=== PATIENT | male | born 1970 | race Caucasian/White ===

== ENCOUNTER 2018-09-14 18:37 | Inpatient (IN) | payer OTHER ==
--- NOTE | 2018-09-14 20:09 | ED ---
HPI Diabetic - HPI Summary HPI Summary: This pt is a 48 y/o male, with hx of type 2 DM (diagnosed about 15 years ago), presenting to [facility] c/o nausea, vomiting, diffuse pain "everywhere." Per , pt started a new keto diet approximately 1 week ago. Pt reports he started feeling ill 3 days ago. Pt notes he began vomiting last night. Pt went to Urgent Care in [place] today where he had blood work and was told he was in DKA. Blood glucose at Urgent Care was 230. He currently presents with SOB, nausea, vomiting, diffuse pain, myalgia, chest pain, abd pain, polydipsia, polyuria. Denies fever. Pt reports he has been compliant with insulin and metformin. However, today he has not been able to keep these medications down. - History Of Current Complaint Chief Complaint: EDDiabeticProb Time Seen by Provider: 09/14/18 20:02 Hx Obtained From: Patient Onset/Duration: Lasting Days, Still Present, Worse Since - last night Timing: Days Severity Currently: Moderate Character: Alert Aggravating: Diet Change - keto diet for about 1 week Alleviating: Nothing Associated Signs & Symptoms: Abdominal Pain, Nausea, Polydipsia, Polyuria, Shortness of Breath, Vomiting Related History: Compliant, DM II, Insulin Requiring - Allergies/Home Medications Allergies/Adverse Reactions: Allergies Allergy/AdvReac Type Severity Reaction Status Date / Time Penicillins Allergy Unknown Verified 09/14/18 20:24 Reaction Details Home Medications: Home Medications Humalog Kwikpen U-100 100 units SUBCUT BEDTIME 09/14/18 [History Confirmed 09/14] metFORMIN* [Glucophage 1000 MG TAB *] 1,000 mg PO BID 09/14/18 [History Confirmed 09/14/18] PMH/Surg Hx/FS Hx/Imm Hx Endocrine/Hematology History: Reports: Hx Diabetes Cardiovascular History: Denies: Hx Hypertension Infectious Disease History: No Infectious Disease History: Denies: Traveled Outside the [place] in Last 30 Days - Family History Known Family History: Positive: Non-Contributory - Social History Alcohol Use: Occasionally Substance Use Type: Reports: None Smoking Status (MU): Never Smoked Tobacco Review of Systems Constitutional: Other - POS: polydipsia, polyuria Positive: Fatigue. Negative: Fever Positive: Chest Pain Positive: Shortness Of Breath Positive: Abdominal Pain, Vomiting, Nausea Positive: Myalgia All Other Systems Reviewed And Are Negative: Yes Physical Exam - Summary Physical Exam Summary: Appearance: Well-nourished Skin: Warm, dry, no obvious rash Eyes: sclera anicteric, no conjunctival pallor ENT: mucous membranes moist, pharynx appears normal Neck: Supple, nontender Respiratory: Clear to auscultation, no signs of respiratory distress Cardiovascular: Normal S1, S2. No murmurs. Normal distal pulses in tibial and radial bilaterally. Abdomen: Soft, nontender, normal active bowel sounds present Musculoskeletal: Normal, Strength/ROM Intact Neurological: A&Ox3, awake and alert, mentation is normal, speech is fluent and appropriate Psychiatric: affect is normal, does not appear anxious or depressed Triage Information Reviewed: Yes Vital Signs On Initial Exam: Initial Vitals Temp Pulse Resp BP Pulse Ox 97.1 F 118 20 136/69 98 09/14/18 18:44 09/14/18 18:44 09/14/18 18:44 09/14/18 18:44 09/14/18 18:44 Vital Signs Reviewed: Yes Diagnostics - Vital Signs Vital Signs Temp Pulse Resp BP Pulse Ox 09/14/18 18:44 97.1 F 118 20 136/69 98 - Laboratory Lab Results: Lab Results 09/14/18 Range/Units 18:51 POC Glucose (mg/dL) 390 H (70-100) mg/dL Result Diagrams: 09/15/18 06:18 09/15/18 09:00 Lab Statement: Any lab studies that have been ordered have been reviewed, and results considered in the medical decision making process. - Radiology Chest XR Summary of Radiographic Findings: pending official radiology report. - EKG 20:31 Cardiac Rate: Tachycardia - at 111 bpm EKG Rhythm: Sinus Tachycardia Summary of EKG Findings: ST elev, probable normal early repol pattern. Prolonged QT interval. Diabetic Course/Dx - Course Assessment/Plan: Pt is a 48 y/o male, with hx of type 2 DM (diagnosed about 15 years ago), who presents with nausea, vomiting, diffuse pain "everywhere." Per , pt started a new keto diet approximately 1 week ago. Pt reports he started feeling ill 3 days ago. Pt notes he began vomiting last night. Pt went to Urgent Care in [place] today where he had blood work and was told he was in DKA. Lab tests remarkable for WBC of 18.2, VBG <7, VBG pCO2 of 18, VBG pO2 of 64, VBG O2 sat of 90.2, sodium of 127, potassium of 5.5, carbon dioxide <7, glucose of 508, CRP of 18.39. In the ED course the pt was given IV fluids, Insulin. Discussed the case with Dr. Powell, hospitalist, who accepted the pt for admission. - Diagnoses Provider Diagnoses: Diabetic ketoacidosis - Physician Notifications Discussed Care Of Patient With: Joanna Powell - hospitalist Time Discussed With Above Provider: 21:10 Instructed by Provider To: Admit As Inpatient - Critical Care Time Critical Care Time: 30-74 min Discharge - Sign-Out/Discharge Documenting (check all that apply): Patient Departure - Admit to [facility] Patient Received Moderate/Deep Sedation with Procedure: No - Discharge Plan Condition: Stable Disposition: ADMITTED TO [facility] - Billing Disposition and Condition Condition: STABLE Disposition: Admitted to [facility] - Attestation Statements Document Initiated by Jenelle: Yes Documenting Nanciibe: Nara Green Provider For Whom Jenelle is Documenting (Include Credential): Jose Rafael Melchor MD Scribe Attestation: Nara Jimenez, scribed for Jose Rafael Melchor MD on 09/15/18 at 1428. Scribe Documentation Reviewed: Yes Provider Attestation: The documentation as recorded by the Nara carrington accurately reflects the service I personally performed and the decisions made by me, Jose Rafael Melchor MD Status of Scribe Document: Viewed
[2018-09-14 20:37] LABS: Hematocrit 47 % (36-46); Hemoglobin 15.6 g/dL (14.0-18.0); Mean Corpuscular HGB Conc 33 g/dL (31-36); Mean Corpuscular Hemoglobin 30 pg (27-31); Mean Corpuscular Volume 91 fL (80-94); Mean Platelet Volume 7.5 fL (7.4-10.4); Platelet Count 338 10^3/uL (150-450); Red Blood Count 5.18 10^6 /uL (4.18-5.48); Red Cell Distribution Width 14 % (10.5-15); White Blood Count 18.1 10^3/uL (3.5-10.8)
[2018-09-14] MEDS: NS 0.9% 1000 ML** 3,000 ML IV ONE ×2 (20:38→22:45)
[2018-09-14 20:54] LABS: ALT 27 U/L (7-52); AST 23 U/L (13-39); Albumin/Globulin Ratio 1.6 (1-3); Alkaline Phosphatase 82 U/L (34-104); BUN/Creatinine Ratio 12.2 (8-20); Blood Urea Nitrogen 23 mg/dL (6-24); C Reactive Protein 18.39 mg/L (<8.01); Calcium 9.4 mg/dL (8.6-10.3); Chloride 93 mmol/L (101-111); EGFR African American 46.3 (>60); EGFR Non-African American 38.3 (>60); Globulin 3.1 g/dL (2-4); Sodium 127 mmol/L (135-145); Total Protein 8.1 g/dL (6.4-8.9)
[2018-09-14 21:00] LABS: CO2 Carbon Dioxide < 7 mmol/L (22-32); Glucose 508 mg/dL (70-100); Potassium 5.5 mmol/L (3.5-5.0)
[2018-09-14 21:03] LABS: Immature Granulocytes 6 % (0-9); Lymphocytes % 10 %; Metamyelocytes % 1 % (0-2); Monocytes % 11 %; Myelocytes % 1 % (0-1); Neutrophil % 73 %
[2018-09-14 21:04] LABS: ABS Basophils 0.1 10^3/ul (0-0.2); ABS Eosinophils 0 10^3/ul (0-0.6); ABS Lymphocytes 1.7 10^3/ul (1.0-4.8); ABS Monocytes 2.1 10^3/ul (0-0.8); ABS Neutrophils 14.3 10^3/ul (1.5-7.7); ABS Nucleated RBC 0 10^3/ul; Nucleated Red Blood Cells % 0.1
[2018-09-14] MEDS ORDERED: Insulin REGULAR(*) 1 UNITS UNIT IV PUSH ONE (21:06)
[2018-09-14] MEDS ORDERED: Morphine 4 MG/ML VIAL (1 ml) 4 MG/ML VIAL IV ONE (21:35)
[2018-09-14 21:49] LABS: Cholesterol 304 mg/dL; HDL Cholesterol 50.9 mg/dL; LDL Cholesterol 199 mg/dL; Triglycerides 271 mg/dL
[2018-09-14] MEDS ORDERED: Morphine 4 MG/ML VIAL (1 ml) 4 MG/ML VIAL IV PRN (21:56)
[2018-09-14] MEDS ORDERED: NS 0.9% 1000 ML** 3,000 ML IV ONE (21:56)
[2018-09-14] MEDS ORDERED: Insulin IVPB 100 units/100 ml 100 UNITS/100 ML UNIT IVPB SCH ×2 (22:00)
[2018-09-14] MEDS ORDERED: Ondansetron INJ* 2 MG/ML VIAL IV PRN (22:14)
[2018-09-14 22:55] LABS: BUN/Creatinine Ratio 13.2 (8-20); Blood Urea Nitrogen 23 mg/dL (6-24); Calcium 8.9 mg/dL (8.6-10.3); Chloride 98 mmol/L (101-111); EGFR African American 50.9 (>60); EGFR Non-African American 42.1 (>60); Glucose 440 mg/dL (70-100); Sodium 129 mmol/L (135-145)
[2018-09-14 22:56] LABS: CO2 Carbon Dioxide < 7 mmol/L (22-32); Potassium 5.3 mmol/L (3.5-5.0)
[2018-09-14] MEDS: KCL 20 MEQ/100 ML IVPREMIX* 20 MEQ/100 ML BAG IV SCH (23:25)
[2018-09-14] MEDS: Enoxaparin(*) 30 MG/0.3 ML SYR SUBCUT SCH (23:26)
[2018-09-15 00:59] LABS: Urine Appearance Clear; Urine Bacteria Absent (Absent); Urine Bilirubin Negative (Negative); Urine Blood 3+ (Negative); Urine Color Yellow; Urine Glucose 3+(>=500 mg/dL) (Negative); Urine Ketones 2+ (Negative); Urine Nitrite Negative (Negative); Urine Protein 1+(30 mg/dL) (Negative); Urine Red Blood Cell Absent (Absent); Urine Specific Gravity 1.015 (1.010-1.030); Urine Squamous Epithelial Cell Present (Absent); Urine Urobilinogen Negative (Negative); Urine White Blood Cell Absent (Absent)
[2018-09-15] MEDS: KCL 20 MEQ/100 ML IVPREMIX* 20 MEQ/100 ML BAG IV SCH ×2 (01:27→04:00)
[2018-09-15 01:54] LABS: BUN/Creatinine Ratio 13.1 (8-20); Blood Urea Nitrogen 22 mg/dL (6-24); CO2 Carbon Dioxide < 7 mmol/L (22-32); Calcium 8.6 mg/dL (8.6-10.3); Chloride 105 mmol/L (101-111); EGFR Non-African American 43.8 (>60); Glucose 272 mg/dL (70-100); Potassium 4.9 mmol/L (3.5-5.0); Sodium 131 mmol/L (135-145)
--- NOTE | 2018-09-15 01:59 | HP ---
HISTORY AND PHYSICAL: DATE OF ADMISSION: 01/14/19 PRIMARY CARE PROVIDER: Dr. Hollins, floor cleaner. JUKE BOX SERVICER: Haylee Bliss, patient's . CODE STATUS: Full. CHIEF COMPLAINT: Nausea, vomiting, and back pain. SOURCE OF INFORMATION: HPI is obtained from patient and his . Patient is a good historian, although limited given his condition at presentation. HISTORY OF PRESENT ILLNESS: This is a 48-year-old male with a past medical history of insulin-dependent diabetes, reports was told it was type 2 and diagnosed 15 years ago, on short-acting insulin and metformin and managed by an floor cleaner in [place]. He presented tonight with nausea, vomiting, and low back pain from urgent care, where they told him to seek emergency room care. He and his said that they started a new ketogenic diet about 1 week ago, and then starting about 3 days ago, patient began to feel ill with malaise and low back pain. The back pain which is dull and achy and in bilateral lumbar region became so severe he felt nausea, but then began vomiting last night, and has diffuse muscle pain dull and achy in most muscle beds since then. He was unable to take pain medications because he was so nauseous and was unable to hold them down. He did go to urgent care today to get these things checked out and they told them that he was in DKA and to present to an emergency room. On review of systems, patient endorses no fevers, chills. Does endorse malaise. Head and Eyes: Denies vision change, headaches. ENT: Denies sore throat or difficulty swallowing. Cardiovascular: Denies guillermo chest pain, palpitations, or orthopnea. Respiratory: Denies shortness of breath or cough. GI: Does endorse nausea and vomiting. Mild constipation, has only been able to have 1 bowel movement in the last 3 days. No abdominal pain. : Denies dysuria or hematuria. Musculoskeletal: Myalgias in low back that radiate to mid back, but no guillermo arthralgias or weakness. Skin: Denies new rashes or infections. Neurologic: Denies focal weakness or numbness. Psychiatric: Denies depression or anxiety. Endocrine: Does endorse polyuria and polydipsia. Heme and Lymph: Denies easy bruising or bleeding. EMERGENCY ROOM COURSE: In the ER, temperature is 97.1, pulse is 118, respiratory rate is 20, blood pressure is 136/69. Labs are done that show a CBC with WBC of 18, CMP with glucose of 500, sodium of 127; though corrects to 133 with a gap greater than 30. His CO2 was unable to be measured. His creatinine was 1.89. EKG shows sinus tachycardia. Chest x-ray was ordered, which shows no acute cardiopulmonary process. A UA was pending at the time of my assessment. He was given 10 units of insulin and started on 3 L normal saline bolus and the emergency room asked the hospitalist team to evaluate the patient for new-onset DKA. PAST MEDICAL HISTORY: Only significant for insulin-dependent diabetes diagnosed 15 years ago and obesity. PAST SURGICAL HISTORY: None. MEDICATIONS: He is on metformin 1000 mg b.i.d. and Humalog with meals, sliding scale. ALLERGIES: He has no known drug allergies. FAMILY HISTORY: Mother is from brain cancer. Father is with diabetes and obesity. SOCIAL HISTORY: Tobacco: He is a lifetime nonsmoker Alcohol: Social, 2 to 3 drinks per month. Illicits: Never, no IVDU. Patient lives with his in [place]. 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 REVIEW OF SYSTEMS: As per HPI. A 10-point review of systems was done. PHYSICAL EXAMINATION GENERAL APPEARANCE: Patient is uncomfortable lying on the emergency room stretcher, rigoring at times, though conversant. Appears unwell. VITAL SIGNS: At the time of monitoring, his heart rate is 100, blood pressure is 131/87, oxygen saturation is 99% on room air, temperature is 98.1. HEENT: He has dry mucous membranes. His extraocular muscles are intact. Pupils are equal and reactive. NECK: Supple with no supraclavicular lymphadenopathy. RESPIRATORY: Clear to auscultation bilaterally. CARDIAC: He is in sinus tachycardia with no murmurs, rubs, or gallops. Belly is distended, but soft, nontender. Normoactive bowel sounds. No rebound, no guarding. MUSCULOSKELETAL: Patient moves all 4 extremities spontaneously, although is limited by pain in flexion and extension of low back. He has no tenderness to palpation of spine, aside from paraspinal muscles in the lumbar spine. Straight leg raise negative EXTREMITIES: He has no edema in bilateral lower extremities and 2+ palpable pulses in bilateral feet. NEUROLOGIC: Cranial nerves II through XII are intact. Lower extremities, 5/5 strength bilaterally in flexion and extension of all muscle groups, although limited by pain of low back. Upper extremities, 5/5 strength in all muscle groups. Sensation is intact bilaterally. He is A and O x4. DIAGNOSTIC STUDIES/LAB DATA: White blood cell count of 18, hemoglobin of 15, hematocrit of 47, platelets of 338. Patient does have a left shift. Chemistry shows sodium of 127, potassium of 5.5, chloride of 93, carbon dioxide less than 7, BUN 23, creatinine of 1.8, glucose of 508. A1c was done which shows A1c of 7.6. Alk phos 82, AST 23, ALT 27, CRP 18. Lipid panel was done which shows cholesterol of 304 with LDL of 199. Blood gas was done which shows VBG, pH of less than 7, although this was venous. Imaging was done including a chest x-ray that shows no active cardiopulmonary process and EKG that shows sinus tachycardia with no acute ischemia. Imaging, labs, and EKG were reviewed by myself. ASSESSMENT AND PLAN: This is a 48-year-old male with insulin-dependent diabetes , seemingly well controlled on insulin and metformin, who presents in diabetic ketoacidosis and meeting systemic inflammatory response syndrome criteria with acute kidney injury. 1. Diabetic ketoacidosis. We will admit to intensive care unit. Venous blood gas shows pH of less than 7. --We will start insulin drip at 0.1 units per kg per hour and 0.9% sodium chloride at 250 cc per hour with the addition of 30 mEq of potassium. We will check q.3-hour BMP for potassium, glucose, and sodium monitoring. --When serum glucose reaches 200, we will clamp the patient with the following management: 5% dextrose and 0.45% sodium chloride for fluids at 200 cc per hour and we will lower insulin drip to 0.05 units per kg per hour with additional 20 mEq of potassium and check BMP q.4 hours until gap is closed. --We will start subcutaneous insulin prior to patient eating. A1c and lipid panel are in place. 2. Systemic inflammatory response syndrome criteria. Patient has elevated leukocytosis, tachycardia, and does meet 2/4 systemic inflammatory response syndrome criteria. He is currently without fever or tachypnea. I have added on lactic acid to see if this is contributing to his gap. At this time, there is no clear source for this systemic inflammatory response syndrome criteria and may all be inflammatory in the setting of diabetic ketoacidosis. Chest x- ray is unremarkable. Urine culture and urinalysis are pending and we will treat accordingly if there is evidence of infection. He has low back pain that has no red flag features -- We will also do routine blood cultures given systemic inflammatory response syndrome criteria being met. Add on PSA for possible prostatitis? -- Given he is quite unwell appearing will cover with ceftriaxone 1 GM x 1 while culture data is pending. 3. Low back pain. Unclear what the etiology of this chronic low back pain is as he has no red flag features such as bladder or bowel incontinence concerning for cauda equina syndrome and had gradual onset with no history of back pain in the past. A radiograph of lumbar spine is ordered. We will continue to monitor with pain control and pursue imaging as needed as diabetic ketoacidosis resolves and if patient continues to have symptoms. 4. Acute kidney injury. This is presumed to be prerenal in the setting of dehydration and diabetic ketoacidosis. We will aggressively fluid hydrate and continue to monitor creatinine for signs of improvement. 5. DVT prophylaxis. Patient will be placed on Lovenox. 6. FEN. NPO 7. Code Status: Full 8. Disposition: Because patient is on an insulin drip and in active diabetic ketoacidosis, he will be admitted to the intensive care unit for intensive nursing care and further monitoring. TIME SPENT: Forty-five minutes were spent in the planning of this admission with over half of that spent directly at the bedside with the patient, providing direct patient care. Plan of care reviewed with the patient and his family and they are agreeing to admission to the ICU for further management of the above problems. [id number]/CPS #: [id number] HARINI
[2018-09-15] MEDS ORDERED: Sodium Bicarbonate 8.4%* 50 ML SYRINGE ONE (02:14)
[2018-09-15] MEDS ORDERED: Sodium Bicarbonate 8.4% SYR* 10 ML SYRINGE IV ONE (02:41)
[2018-09-15] MEDS ORDERED: Insulin IVPB 100 units/100 ml 100 UNITS/100 ML UNIT IVPB SCH (02:42)
[2018-09-15] MEDS: D5W 1/2 NS 1000 ML BAG* 1,000 ML IV SCH ×2 (02:55→08:03)
[2018-09-15] MEDS ORDERED: Sodium Bicarbonate 8.4%* 50 ML SYRINGE IV ONE (03:09)
[2018-09-15] MEDS ORDERED: cefTRIAXone(*) 1 GM in NS 0.9% 50 ML* 50 ML IVPB ONE (03:10)
[2018-09-15 03:18] LABS: Influenza A Molecular NEGATIVE (Negative); Influenza B Molecular NEGATIVE (Negative)
[2018-09-15] MEDS: Sodium Bicarbonate 8.4% IV* 75 MEQ in NS 0.45% 1000 ML BAG* 1,000 ML IV SCH ×2 (04:01→13:55)
[2018-09-15] MEDS: Acetaminophen TAB* 325 MG PO PRN (04:14)
[2018-09-15 04:17] LABS: BUN/Creatinine Ratio 13.7 (8-20); Blood Urea Nitrogen 21 mg/dL (6-24); Calcium 8.6 mg/dL (8.6-10.3); Chloride 106 mmol/L (101-111); EGFR African American 59.1 (>60); EGFR Non-African American 48.8 (>60); Glucose 213 mg/dL (70-100); Potassium 4.6 mmol/L (3.5-5.0); Sodium 133 mmol/L (135-145)
[2018-09-15 04:18] LABS: CO2 Carbon Dioxide < 7 mmol/L (22-32)
[2018-09-15 06:17] LABS: Creatine Kinase 238 U/L (10-223)
[2018-09-15 06:34] LABS: Hematocrit 42 % (36-46); Mean Corpuscular HGB Conc 33 g/dL (31-36); Mean Corpuscular Hemoglobin 30 pg (27-31); Mean Corpuscular Volume 89 fL (80-94); Mean Platelet Volume 7.2 fL (7.4-10.4); Platelet Count 181 10^3/uL (150-450); Red Blood Count 4.71 10^6 /uL (4.18-5.48); Red Cell Distribution Width 13 % (10.5-15)
[2018-09-15 06:48] LABS: BUN/Creatinine Ratio 13.5 (8-20); Calcium 8.4 mg/dL (8.6-10.3); EGFR African American 64.9 (>60); EGFR Non-African American 53.6 (>60); Potassium 4.3 mmol/L (3.5-5.0)
[2018-09-15 07:33] LABS: ABS Basophils 0 10^3/ul (0-0.2); ABS Eosinophils 0 10^3/ul (0-0.6); ABS Lymphocytes 1.3 10^3/ul (1.0-4.8); ABS Monocytes 2.5 10^3/ul (0-0.8); ABS Neutrophils 12.2 10^3/ul (1.5-7.7); ABS Nucleated RBC 0 10^3/ul; Eosinophil % 0 %; Nucleated Red Blood Cells % 0
[2018-09-15 07:52] LABS: Magnesium 2.1 mg/dL (1.9-2.7)
[2018-09-15 09:34] LABS: BUN/Creatinine Ratio 13.3 (8-20); Calcium 8.3 mg/dL (8.6-10.3); EGFR African American 68.3 (>60); EGFR Non-African American 56.4 (>60); Phosphorus 1.2 mg/dL (2.5-5.0); Potassium 3.9 mmol/L (3.5-5.0)
[2018-09-15 09:55] LABS: Magnesium 1.8 mg/dL (1.9-2.7)
[2018-09-15] MEDS ORDERED: Potassium Phosphate IV* 15 MMOLE in NS 0.9% 250 ML* 250 ML IVPB ONE (10:15)
[2018-09-15] MEDS ORDERED: Magnesium Sulfate 2 GM IV* 2 GM/50 ML BAG IVPB ONE (10:16)
[2018-09-15] MEDS ORDERED: Iodixanol* (CONTRAST) 320 MG/ML 100 ML SDV IV ONE (11:09)
[2018-09-15 14:43] LABS: Albumin 3.7 g/dL (3.2-5.2); Albumin/Globulin Ratio 1.5 (1-3); BUN/Creatinine Ratio 12.7 (8-20); Calcium 8.4 mg/dL (8.6-10.3); EGFR African American 73.9 (>60); EGFR Non-African American 61.1 (>60); Globulin 2.4 g/dL (2-4); Potassium 3.3 mmol/L (3.5-5.0); Total Bilirubin 0.7 mg/dL (0.2-1.0); Total Protein 6.1 g/dL (6.4-8.9)
[2018-09-15] MEDS: Insulin GLARGINE(*) 1 UNITS UNIT SUBCUT SCH (16:07)
[2018-09-15] MEDS ORDERED: Dextrose 50% Syringe 50 ML* 25 GM/50 ML SYRINGE IV PUSH PRN (17:29)
--- NOTE | 2018-09-15 17:47 | PN ---
Date of Service: 09/15/18 Vital Signs: Temp Pulse Resp BP SpO2 FiO2 98.5 F 105 22 134/65 94 09/15/18 16:12 09/15/18 17:00 09/15/18 17:00 09/15/18 17:00 09/15/18 17:00 Physical Exam: Gen: Alert, tired, NAD HEENT: atraumatic, normocephalic Lungs: clear bilat to auscultation Cardiac: normal S1S2, no murmurs, gallups or rubs, RSR on tele Abdomen: Benign Extremities: brisk cap refill, no clubbing or edema Neuro: A&O x3, no focal deficits Fluid Balance (Past 24 Hours): I= 2707.2 O= 2450 Net +257.2 Intake & Output 09/13/18 09/14/18 09/15/18 09/16/18 06:59 06:59 06:59 06:59 Intake Total 4012.5 2707.2 Output Total 1999 2450 Balance 2012.5 257.2 Weight 246 lb 11.156 oz 246 lb Intake: IV Fluids 3951.6 1860 D5W 1/2 NS 437 1007 KCl 291 Sodium Bicarb 171 853 IVPB 50 D5W 1/2 NS 50 Medicated IV 10.9 47.2 CC - Insulin 10.9 47.2 Oral 0 800 Output: Urine 1999 2450 Other: Date of Last Bowel 09/15/18 Movement # Bowel Movements 1 Estimated Stool Amount Large Labs: Laboratory Results - last 24 hr 09/14/18 09/14/18 09/14/18 18:51 20:17 20:25 WBC 18.1 H RBC 5.18 Hgb 15.6 Hct 47 H MCV 91 MCH 30 MCHC 33 RDW 14 Plt Count 338 MPV 7.5 Neut % (Auto) Not Reportable Lymph % (Auto) Not Reportable [place] % (Auto) Not Reportable Eos % (Auto) Not Reportable Baso % (Auto) Not Reportable Absolute Neuts (auto) 14.3 H Absolute Lymphs (auto) 1.7 Absolute Monos (auto) 2.1 H Absolute Eos (auto) 0 Absolute Basos (auto) 0.1 Absolute Nucleated RBC 0 Immature Gran % 6 Neutrophils % 73 Band Neutrophils % 4 Lymphocytes % 10 Monocytes % 11 Metamyelocytes % 1 Myelocytes % 1 Nucleated RBC % 0.1 Normal RBC Morphology Normal VBG pH VBG pCO2 VBG pO2 VBG HCO3 VBG O2 Saturation VBG Base Excess Sodium Potassium Chloride Carbon Dioxide Anion Gap BUN Creatinine Est GFR ( Amer) Est GFR (Non-Af Amer) BUN/Creatinine Ratio Glucose POC Glucose (mg/dL) 390 H Hemoglobin A1c Lactic Acid Calcium Phosphorus Magnesium Total Bilirubin AST ALT Alkaline Phosphatase Total Creatine Kinase C-Reactive Protein Total Protein Albumin Globulin Albumin/Globulin Ratio Triglycerides Cholesterol LDL Cholesterol HDL Cholesterol Lipase Prostate Specific Ag 0.535 Urine Color Urine Appearance Urine pH Ur Specific Smiley Urine Protein Urine Ketones Urine Blood Urine Nitrate Urine Bilirubin Urine Urobilinogen Ur Leukocyte Esterase Urine WBC (Auto) Urine RBC (Auto) Ur Squamous Epith Cells Amorphous Crystals Urine Bacteria Urine Glucose Influenza A (Rapid) Influenza B (Rapid) 09/14/18 09/14/18 09/14/18 20:25 20:25 20:26 WBC RBC Hgb Hct MCV MCH MCHC RDW Plt Count MPV Neut % (Auto) Lymph % (Auto) [place] % (Auto) Eos % (Auto) Baso % (Auto) Absolute Neuts (auto) Absolute Lymphs (auto) Absolute Monos (auto) Absolute Eos (auto) Absolute Basos (auto) Absolute Nucleated RBC Immature Gran % Neutrophils % Band Neutrophils % Lymphocytes % Monocytes % Metamyelocytes % Myelocytes % Nucleated RBC % Normal RBC Morphology VBG pH <7.00 L VBG pCO2 18 L VBG pO2 64.0 H VBG HCO3 TNP VBG O2 Saturation 90.2 H VBG Base Excess TNP Sodium 127 L Potassium 5.5 H Chloride 93 L Carbon Dioxide < 7 L* Anion Gap Not Reportable BUN 23 Creatinine 1.89 H Est GFR ( Amer) 46.3 Est GFR (Non-Af Amer) 38.3 BUN/Creatinine Ratio 12.2 Glucose 508 H* POC Glucose (mg/dL) Hemoglobin A1c 7.6 H Lactic Acid Calcium 9.4 Phosphorus Magnesium Total Bilirubin 0.60 AST 23 ALT 27 Alkaline Phosphatase 82 Total Creatine Kinase C-Reactive Protein 18.39 H Total Protein 8.1 Albumin 5.0 Globulin 3.1 Albumin/Globulin Ratio 1.6 Triglycerides 271 Cholesterol 304 LDL Cholesterol 199 HDL Cholesterol 50.9 Lipase Prostate Specific Ag Urine Color Urine Appearance Urine pH Ur Specific Smiley Urine Protein Urine Ketones Urine Blood Urine Nitrate Urine Bilirubin Urine Urobilinogen Ur Leukocyte Esterase Urine WBC (Auto) Urine RBC (Auto) Ur Squamous Epith Cells Amorphous Crystals Urine Bacteria Urine Glucose Influenza A (Rapid) Influenza B (Rapid) 09/14/18 09/14/18 09/14/18 22:32 22:32 23:19 WBC RBC Hgb Hct MCV MCH MCHC RDW Plt Count MPV Neut % (Auto) Lymph % (Auto) [place] % (Auto) Eos % (Auto) Baso % (Auto) Absolute Neuts (auto) Absolute Lymphs (auto) Absolute Monos (auto) Absolute Eos (auto) Absolute Basos (auto) Absolute Nucleated RBC Immature Gran % Neutrophils % Band Neutrophils % Lymphocytes % Monocytes % Metamyelocytes % Myelocytes % Nucleated RBC % Normal RBC Morphology VBG pH VBG pCO2 VBG pO2 VBG HCO3 VBG O2 Saturation VBG Base Excess Sodium 129 L Potassium 5.3 H Chloride 98 L Carbon Dioxide < 7 L* Anion Gap Not Reportable BUN 23 Creatinine 1.74 H Est GFR ( Amer) 50.9 Est GFR (Non-Af Amer) 42.1 BUN/Creatinine Ratio 13.2 Glucose 440 H POC Glucose (mg/dL) 357 H Hemoglobin A1c Lactic Acid 1.9 Calcium 8.9 Phosphorus Magnesium Total Bilirubin AST ALT Alkaline Phosphatase Total Creatine Kinase C-Reactive Protein Total Protein Albumin Globulin Albumin/Globulin Ratio Triglycerides Cholesterol LDL Cholesterol HDL Cholesterol Lipase Prostate Specific Ag Urine Color Urine Appearance Urine pH Ur Specific Smiley Urine Protein Urine Ketones Urine Blood Urine Nitrate Urine Bilirubin Urine Urobilinogen Ur Leukocyte Esterase Urine WBC (Auto) Urine RBC (Auto) Ur Squamous Epith Cells Amorphous Crystals Urine Bacteria Urine Glucose Influenza A (Rapid) Influenza B (Rapid) 09/14/18 09/15/18 09/15/18 23:40 00:28 00:30 WBC RBC Hgb Hct MCV MCH MCHC RDW Plt Count MPV Neut % (Auto) Lymph % (Auto) [place] % (Auto) Eos % (Auto) Baso % (Auto) Absolute Neuts (auto) Absolute Lymphs (auto) Absolute Monos (auto) Absolute Eos (auto) Absolute Basos (auto) Absolute Nucleated RBC Immature Gran % Neutrophils % Band Neutrophils % Lymphocytes % Monocytes % Metamyelocytes % Myelocytes % Nucleated RBC % Normal RBC Morphology VBG pH VBG pCO2 VBG pO2 VBG HCO3 VBG O2 Saturation VBG Base Excess Sodium Potassium Chloride Carbon Dioxide Anion Gap BUN Creatinine Est GFR ( Amer) Est GFR (Non-Af Amer) BUN/Creatinine Ratio Glucose POC Glucose (mg/dL) 272 H Hemoglobin A1c Lactic Acid Calcium Phosphorus Magnesium Total Bilirubin AST ALT Alkaline Phosphatase Total Creatine Kinase C-Reactive Protein Total Protein Albumin Globulin Albumin/Globulin Ratio Triglycerides Cholesterol LDL Cholesterol HDL Cholesterol Lipase Prostate Specific Ag Urine Color Yellow Urine Appearance Clear Urine pH 5.0 Ur Specific Smiley 1.015 Urine Protein 1+(30 mg/dl) A Urine Ketones 2+ A Urine Blood 3+ A Urine Nitrate Negative Urine Bilirubin Negative Urine Urobilinogen Negative Ur Leukocyte Esterase Negative Urine WBC (Auto) Absent Urine RBC (Auto) Absent Ur Squamous Epith Cells Present A Amorphous Crystals Present A Urine Bacteria Absent Urine Glucose 3+(>=500 mg/dl) A Influenza A (Rapid) Negative Influenza B (Rapid) Negative 09/15/18 09/15/18 09/15/18 01:20 01:26 02:18 WBC RBC Hgb Hct MCV MCH MCHC RDW Plt Count MPV Neut % (Auto) Lymph % (Auto) [place] % (Auto) Eos % (Auto) Baso % (Auto) Absolute Neuts (auto) Absolute Lymphs (auto) Absolute Monos (auto) Absolute Eos (auto) Absolute Basos (auto) Absolute Nucleated RBC Immature Gran % Neutrophils % Band Neutrophils % Lymphocytes % Monocytes % Metamyelocytes % Myelocytes % Nucleated RBC % Normal RBC Morphology VBG pH VBG pCO2 VBG pO2 VBG HCO3 VBG O2 Saturation VBG Base Excess Sodium 131 L Potassium 4.9 Chloride 105 Carbon Dioxide < 7 L* Anion Gap Not Reportable BUN 22 Creatinine 1.68 H Est GFR ( Amer) 53.0 Est GFR (Non-Af Amer) 43.8 BUN/Creatinine Ratio 13.1 Glucose 272 H POC Glucose (mg/dL) 242 H 184 H Hemoglobin A1c Lactic Acid Calcium 8.6 Phosphorus Magnesium 2.1 Total Bilirubin AST ALT Alkaline Phosphatase Total Creatine Kinase 238 H C-Reactive Protein Total Protein Albumin Globulin Albumin/Globulin Ratio Triglycerides Cholesterol LDL Cholesterol HDL Cholesterol Lipase Prostate Specific Ag Urine Color Urine Appearance Urine pH Ur Specific Smiley Urine Protein Urine Ketones Urine Blood Urine Nitrate Urine Bilirubin Urine Urobilinogen Ur Leukocyte Esterase Urine WBC (Auto) Urine RBC (Auto) Ur Squamous Epith Cells Amorphous Crystals Urine Bacteria Urine Glucose Influenza A (Rapid) Influenza B (Rapid) 09/15/18 09/15/18 09/15/18 03:05 03:54 03:55 WBC RBC Hgb Hct MCV MCH MCHC RDW Plt Count MPV Neut % (Auto) Lymph % (Auto) [place] % (Auto) Eos % (Auto) Baso % (Auto) Absolute Neuts (auto) Absolute Lymphs (auto) Absolute Monos (auto) Absolute Eos (auto) Absolute Basos (auto) Absolute Nucleated RBC Immature Gran % Neutrophils % Band Neutrophils % Lymphocytes % Monocytes % Metamyelocytes % Myelocytes % Nucleated RBC % Normal RBC Morphology VBG pH VBG pCO2 VBG pO2 VBG HCO3 VBG O2 Saturation VBG Base Excess Sodium 133 L Potassium 4.6 Chloride 106 Carbon Dioxide < 7 L* Anion Gap Not Reportable BUN 21 Creatinine 1.53 H Est GFR ( Amer) 59.1 Est GFR (Non-Af Amer) 48.8 BUN/Creatinine Ratio 13.7 Glucose 213 H POC Glucose (mg/dL) 212 H 183 H Hemoglobin A1c Lactic Acid Calcium 8.6 Phosphorus Magnesium Total Bilirubin AST ALT Alkaline Phosphatase Total Creatine Kinase C-Reactive Protein Total Protein Albumin Globulin Albumin/Globulin Ratio Triglycerides Cholesterol LDL Cholesterol HDL Cholesterol Lipase Prostate Specific Ag Urine Color Urine Appearance Urine pH Ur Specific Smiley Urine Protein Urine Ketones Urine Blood Urine Nitrate Urine Bilirubin Urine Urobilinogen Ur Leukocyte Esterase Urine WBC (Auto) Urine RBC (Auto) Ur Squamous Epith Cells Amorphous Crystals Urine Bacteria Urine Glucose Influenza A (Rapid) Influenza B (Rapid) 09/15/18 09/15/18 09/15/18 04:56 06:18 06:18 WBC 16.0 H RBC 4.71 Hgb 14.0 Hct 42 MCV 89 MCH 30 MCHC 33 RDW 13 Plt Count 181 MPV 7.2 L Neut % (Auto) 76.2 Lymph % (Auto) 8.0 [place] % (Auto) 15.5 Eos % (Auto) 0 Baso % (Auto) 0.3 Absolute Neuts (auto) 12.2 H Absolute Lymphs (auto) 1.3 Absolute Monos (auto) 2.5 H Absolute Eos (auto) 0 Absolute Basos (auto) 0 Absolute Nucleated RBC 0 Immature Gran % Neutrophils % Band Neutrophils % Lymphocytes % Monocytes % Metamyelocytes % Myelocytes % Nucleated RBC % 0 Normal RBC Morphology VBG pH VBG pCO2 VBG pO2 VBG HCO3 VBG O2 Saturation VBG Base Excess Sodium 133 L Potassium 4.3 Chloride 108 Carbon Dioxide 7 L* Anion Gap 18 H BUN 19 Creatinine 1.41 H Est GFR ( Amer) 64.9 Est GFR (Non-Af Amer) 53.6 BUN/Creatinine Ratio 13.5 Glucose 193 H POC Glucose (mg/dL) 200 H Hemoglobin A1c Lactic Acid Calcium 8.4 L Phosphorus Magnesium Total Bilirubin AST ALT Alkaline Phosphatase Total Creatine Kinase C-Reactive Protein Total Protein Albumin Globulin Albumin/Globulin Ratio Triglycerides Cholesterol LDL Cholesterol HDL Cholesterol Lipase Prostate Specific Ag Urine Color Urine Appearance Urine pH Ur Specific Smiley Urine Protein Urine Ketones Urine Blood Urine Nitrate Urine Bilirubin Urine Urobilinogen Ur Leukocyte Esterase Urine WBC (Auto) Urine RBC (Auto) Ur Squamous Epith Cells Amorphous Crystals Urine Bacteria Urine Glucose Influenza A (Rapid) Influenza B (Rapid) 09/15/18 09/15/18 09/15/18 06:23 07:21 08:03 WBC RBC Hgb Hct MCV MCH MCHC RDW Plt Count MPV Neut % (Auto) Lymph % (Auto) [place] % (Auto) Eos % (Auto) Baso % (Auto) Absolute Neuts (auto) Absolute Lymphs (auto) Absolute Monos (auto) Absolute Eos (auto) Absolute Basos (auto) Absolute Nucleated RBC Immature Gran % Neutrophils % Band Neutrophils % Lymphocytes % Monocytes % Metamyelocytes % Myelocytes % Nucleated RBC % Normal RBC Morphology VBG pH VBG pCO2 VBG pO2 VBG HCO3 VBG O2 Saturation VBG Base Excess Sodium Potassium Chloride Carbon Dioxide Anion Gap BUN Creatinine Est GFR ( Amer) Est GFR (Non-Af Amer) BUN/Creatinine Ratio Glucose POC Glucose (mg/dL) 175 H 181 H 168 H Hemoglobin A1c Lactic Acid Calcium Phosphorus Magnesium Total Bilirubin AST ALT Alkaline Phosphatase Total Creatine Kinase C-Reactive Protein Total Protein Albumin Globulin Albumin/Globulin Ratio Triglycerides Cholesterol LDL Cholesterol HDL Cholesterol Lipase Prostate Specific Ag Urine Color Urine Appearance Urine pH Ur Specific Smiley Urine Protein Urine Ketones Urine Blood Urine Nitrate Urine Bilirubin Urine Urobilinogen Ur Leukocyte Esterase Urine WBC (Auto) Urine RBC (Auto) Ur Squamous Epith Cells Amorphous Crystals Urine Bacteria Urine Glucose Influenza A (Rapid) Influenza B (Rapid) 09/15/18 09/15/18 09/15/18 09:00 09:00 10:12 WBC RBC Hgb Hct MCV MCH MCHC RDW Plt Count MPV Neut % (Auto) Lymph % (Auto) [place] % (Auto) Eos % (Auto) Baso % (Auto) Absolute Neuts (auto) Absolute Lymphs (auto) Absolute Monos (auto) Absolute Eos (auto) Absolute Basos (auto) Absolute Nucleated RBC Immature Gran % Neutrophils % Band Neutrophils % Lymphocytes % Monocytes % Metamyelocytes % Myelocytes % Nucleated RBC % Normal RBC Morphology VBG pH VBG pCO2 VBG pO2 VBG HCO3 VBG O2 Saturation VBG Base Excess Sodium 133 L Potassium 3.9 Chloride 108 Carbon Dioxide 11 L* Anion Gap 14 H BUN 18 Creatinine 1.35 H Est GFR ( Amer) 68.3 Est GFR (Non-Af Amer) 56.4 BUN/Creatinine Ratio 13.3 Glucose 184 H POC Glucose (mg/dL) 164 H 165 H Hemoglobin A1c Lactic Acid Calcium 8.3 L Phosphorus 1.2 L Magnesium 1.8 L Total Bilirubin AST ALT Alkaline Phosphatase Total Creatine Kinase C-Reactive Protein Total Protein Albumin Globulin Albumin/Globulin Ratio Triglycerides Cholesterol LDL Cholesterol HDL Cholesterol Lipase 78 Prostate Specific Ag Urine Color Urine Appearance Urine pH Ur Specific Smiley Urine Protein Urine Ketones Urine Blood Urine Nitrate Urine Bilirubin Urine Urobilinogen Ur Leukocyte Esterase Urine WBC (Auto) Urine RBC (Auto) Ur Squamous Epith Cells Amorphous Crystals Urine Bacteria Urine Glucose Influenza A (Rapid) Influenza B (Rapid) 09/15/18 09/15/18 09/15/18 10:59 11:47 13:06 WBC RBC Hgb Hct MCV MCH MCHC RDW Plt Count MPV Neut % (Auto) Lymph % (Auto) [place] % (Auto) Eos % (Auto) Baso % (Auto) Absolute Neuts (auto) Absolute Lymphs (auto) Absolute Monos (auto) Absolute Eos (auto) Absolute Basos (auto) Absolute Nucleated RBC Immature Gran % Neutrophils % Band Neutrophils % Lymphocytes % Monocytes % Metamyelocytes % Myelocytes % Nucleated RBC % Normal RBC Morphology VBG pH VBG pCO2 VBG pO2 VBG HCO3 VBG O2 Saturation VBG Base Excess Sodium Potassium Chloride Carbon Dioxide Anion Gap BUN Creatinine Est GFR ( Amer) Est GFR (Non-Af Amer) BUN/Creatinine Ratio Glucose POC Glucose (mg/dL) 210 H 186 H 142 H Hemoglobin A1c Lactic Acid Calcium Phosphorus Magnesium Total Bilirubin AST ALT Alkaline Phosphatase Total Creatine Kinase C-Reactive Protein Total Protein Albumin Globulin Albumin/Globulin Ratio Triglycerides Cholesterol LDL Cholesterol HDL Cholesterol Lipase Prostate Specific Ag Urine Color Urine Appearance Urine pH Ur Specific [place] Urine Protein Urine Ketones Urine Blood Urine Nitrate Urine Bilirubin Urine Urobilinogen Ur Leukocyte Esterase Urine WBC (Auto) Urine RBC (Auto) Ur Squamous Epith Cells Amorphous Crystals Urine Bacteria Urine Glucose Influenza A (Rapid) Influenza B (Rapid) 09/15/18 09/15/18 09/15/18 13:57 16:07 17:05 WBC RBC Hgb Hct MCV MCH MCHC RDW Plt Count MPV Neut % (Auto) Lymph % (Auto) [place] % (Auto) Eos % (Auto) Baso % (Auto) Absolute Neuts (auto) Absolute Lymphs (auto) Absolute Monos (auto) Absolute Eos (auto) Absolute Basos (auto) Absolute Nucleated RBC Immature Gran % Neutrophils % Band Neutrophils % Lymphocytes % Monocytes % Metamyelocytes % Myelocytes % Nucleated RBC % Normal RBC Morphology VBG pH VBG pCO2 VBG pO2 VBG HCO3 VBG O2 Saturation VBG Base Excess Sodium 135 Potassium 3.3 L Chloride 108 Carbon Dioxide 17 L Anion Gap 10 BUN 16 Creatinine 1.26 H Est GFR ( Amer) 73.9 Est GFR (Non-Af Amer) 61.1 BUN/Creatinine Ratio 12.7 Glucose 137 H POC Glucose (mg/dL) 82 193 H Hemoglobin A1c Lactic Acid Calcium 8.4 L Phosphorus Magnesium Total Bilirubin 0.70 AST 16 ALT 19 Alkaline Phosphatase 56 Total Creatine Kinase C-Reactive Protein Total Protein 6.1 L Albumin 3.7 Globulin 2.4 Albumin/Globulin Ratio 1.5 Triglycerides Cholesterol LDL Cholesterol HDL Cholesterol Lipase Prostate Specific Ag Urine Color Urine Appearance Urine pH Ur Specific Smiley Urine Protein Urine Ketones Urine Blood Urine Nitrate Urine Bilirubin Urine Urobilinogen Ur Leukocyte Esterase Urine WBC (Auto) Urine RBC (Auto) Ur Squamous Epith Cells Amorphous Crystals Urine Bacteria Urine Glucose Influenza A (Rapid) Influenza B (Rapid) Studies: Patient Name: LISBETH RAWLS Medical Record#: [id number] Ordering Physician: Judi De Leon NP Acct.#: [id number] : 1970 Age: 48 Sex: M Location: [facility] Exam Date: 09/15/18948 ADM Status: ADM IN Order Information: CT ABD/PEL W Accession Number: [id number] CPT: 87323 Indication: Diabetic ketoacidosis with abdominal pain. Contrast: Administered 140.3 ml of VISAPAQUE 320 mg/ml CT of the abdomen and pelvis was performed after oral and IV contrast administration. Coronal and sagittal reconstructed images were obtained. The lung bases demonstrate right basilar atelectasis. Heart is of normal size without pericardial effusion. Liver is normal in size. No focal lesions or intrahepatic ductal dilatation is noted. The spleen is normal in size. Pancreas demonstrates no mass or pancreatic duct dilatation. The common duct is not dilated. The gallbladder demonstrates no calcified gallstones , pericholecystic fluid or wall thickening. No adrenal masses are noted. The kidneys demonstrate symmetric nephrograms without focal lesions. No hydronephrosis is noted. Aorta and inferior vena cava are unremarkable. No retroperitoneal lymphadenopathy is noted. No dilated loops of bowel are noted. CT of the pelvis demonstrates no retroperitoneal or pelvic lymphadenopathy. The urinary bladder is unremarkable. No hernias are noted. The colon is filled with stool. No pelvic adenopathy is identified. The colon is filled with stool. There is diverticulosis without definite evidence of diverticulitis. The bony structures are grossly unremarkable. IMPRESSION: No abnormal masses or fluid collections are identified. Nutrition: Consistent carb diet with 1-2 carb servings per meal. Impression: This is a 48 year old male with hx of IDDM that presents to ER with vomiting and back pain, found to be in DKA, admitted to ICU for DKA: Plan: Neuro - Intact, no AMS CV - Initially meeting SIRS criteria at admission, now resolved, afebrile, no hypotension - Lactic acidosis likely 2/2 DKA no obvious source of infection - Was vomiting at home, viral? Remains mildly tachycardic but afebrile - Stable, continue tele GI/ - CT abdomen pelvis with no focal findings - No obstructive uropathy, urine clear Muskuloskeletal - Lumbar imaging negative, back pain spontaneously improving Endocrine - DKA protocol; sugars now below 200, insulin drip off - GAP closed - Bicarb DCd - Repleted with KPhos and Mag - Continue to monitory lytes, sodium corrected - one dose lantus 0.2u/kg now (22u) - Insulin to carb ratio coverage 1u:10carb with accuchecks AC and HS DVT prophy: Lovenox Code Status: Full Code Plan: Dispo: ICU, critical/guarde Critical Care Time: 60 minutes
[2018-09-15] MEDS ORDERED: Insulin LISPRO* 1 UNITS UNIT SUBCUT ONE (19:29)
[2018-09-15] MEDS ORDERED: Insulin LISPRO* 1 UNITS UNIT SUBCUT SCH (21:00)
[2018-09-15] MEDS: Insulin LISPRO* 1 UNITS UNIT SUBCUT SCH (21:31)
[2018-09-15] MEDS: Enoxaparin(*) 30 MG/0.3 ML SYR SUBCUT SCH (21:32)
[2018-09-16] MEDS: cefTRIAXone VIAL(*) 500 MG in NS 0.9% 50 ML* 50 ML IVPB SCH (02:45)
[2018-09-16] MEDS: Insulin LISPRO* 1 UNITS UNIT SUBCUT SCH ×8 (08:26→21:24)
[2018-09-16] MEDS: Acetaminophen TAB* 325 MG PO PRN (08:36)
[2018-09-16 08:47] LABS: Calcium 8.6 mg/dL (8.6-10.3); EGFR African American 79.7 (>60); EGFR Non-African American 65.9 (>60); Potassium 3.3 mmol/L (3.5-5.0)
[2018-09-16] MEDS: NS 0.9% w/ 40 Meq KCL 1000 ML* 1,000 ML IV SCH ×2 (09:12→19:18)
[2018-09-16 09:21] LABS: Phosphorus 1.4 mg/dL (2.5-5.0)
[2018-09-16] MEDS ORDERED: Potassium Phosphate IV* 15 MMOLE in NS 0.9% 250 ML* 250 ML IVPB ONE (10:45)
[2018-09-16] MEDS ORDERED: Dextrose 50% Syringe 50 ML* 25 GM/50 ML SYRINGE IV PUSH PRN (11:57)
--- NOTE | 2018-09-16 11:57 | PN ---
Subjective Date of Service: 09/16/18 Interval History: Patient seen and examined. Remains fatigued, but no overnight events. Denies fever or chills, no SOB, no abdominal pain, no urinary complaints. States his back is sore from "sleeping in the bed", but otherwise feeling ok. Objective Active Medications: Acetaminophen (Tylenol Tab*) 650 mg PO Q4H PRN PRN Reason: FEVER/PAIN Last Admin: 09/16/18 08:36 Dose: 650 mg Dextrose (D50w Syringe 50 Ml*) 12.5 gm IV PUSH .FOR FS < 60 - SS PRN PRN Reason: FS < 60 Enoxaparin Sodium (Lovenox(*)) 30 mg SUBCUT Q24H [facility] Last Admin: 09/15/18 21:32 Dose: 30 mg Ceftriaxone Sodium 500 mg/ (Sodium Chloride) 50 mls @ 200 mls/hr IVPB Q24H [facility] Last Admin: 09/16/18 02:45 Dose: 200 mls/hr Potassium Chloride/Sodium Chloride (Ns 0.9% W/ 40 Meq Kcl 1000 Ml*) 1,000 mls @ 150 mls/hr IV PER RATE [facility] Last Admin: 09/16/18 09:12 Dose: 150 mls/hr Potassium Phosphate 15 mmole/ (Sodium Chloride) 255 mls @ 42 mls/hr IVPB ONCE ONE Stop: 09/16/18 16:49 Last Admin: 09/16/18 11:33 Dose: 42 mls/hr Insulin Glargine (Lantus(*)) 22 units SUBCUT Q24H [facility] Last Admin: 09/15/18 16:07 Dose: 22 units Insulin Human Lispro (Humalog*) 0 units SUBCUT FS [facility]; Protocol Last Admin: 09/16/18 08:26 Dose: 6 units Insulin Human Lispro (Humalog*) 10 units SUBCUT FS [facility] Last Admin: 09/16/18 08:27 Dose: 10 units Morphine Sulfate (Morphine 4 Mg/Ml Vial (1 Ml)) 4 mg IV Q4H PRN PRN Reason: PAIN - MILD Ondansetron HCl (Zofran Inj*) 4 mg IV Q6H PRN PRN Reason: NAUSEA Vital Signs - 8 hr 09/16/18 09/16/18 09/16/18 04:00 05:00 05:50 Temperature Pulse Rate 93 86 Respiratory 20 17 19 Rate Blood Pressure 122/68 (mmHg) O2 Sat by Pulse 95 95 Oximetry 09/16/18 09/16/18 09/16/18 06:00 07:00 07:46 Temperature 97.8 F Pulse Rate 84 91 Respiratory 23 20 Rate Blood Pressure 120/70 124/75 (mmHg) O2 Sat by Pulse 97 98 Oximetry 09/16/18 09/16/18 09/16/18 08:00 09:00 10:00 Temperature Pulse Rate 94 96 97 Respiratory 17 13 16 Rate Blood Pressure (mmHg) O2 Sat by Pulse 97 96 97 Oximetry 09/16/18 11:00 Temperature Pulse Rate 87 Respiratory 19 Rate Blood Pressure (mmHg) O2 Sat by Pulse 97 Oximetry Oxygen Devices in Use Now: None Appearance: alert, NAD Eyes: No Scleral Icterus, PERRLA Ears/Nose/Mouth/Throat: NL Teeth, Lips, Gums, Mucous Membranes Moist Neck: NL Appearance and Movements; NL JVP, Trachea Midline Respiratory: Symmetrical Chest Expansion and Respiratory Effort, Clear to Auscultation Cardiovascular: NL Sounds; No Murmurs; No JVD, RRR, No Edema Abdominal: NL Sounds; No Tenderness; No Distention Extremities: No Edema, No Clubbing, Cyanosis Skin: No Rash or Ulcers Neurological: Alert and Oriented x 3, NL Sensation, NL Gait, NL Muscle Strength and Tone Nutrition: Taking PO's Result Diagrams: 09/15/18 06:18 09/16/18 07:53 Additional Lab and Data: Lab Results 09/14/18 Range/Units 18:51 POC Glucose (mg/dL) 390 H (70-100) mg/dL Microbiology and Other Data: Microbiology 09/14/18 22:41 Aerobic Blood Culture - Preliminary Blood Venous No Growth Day 1 Anaerobic Blood Culture - Preliminary No Growth Day 1 09/14/18 22:48 Aerobic Blood Culture - Preliminary Blood Venous No Growth Day 1 Anaerobic Blood Culture - Preliminary No Growth Day 1 09/14/18 23:40 Nasal Screen MRSA (PCR) - Final Nasal Mrsa Not Detected Assess/Plan/Problems-Billing Assessment: This is a 48 year old male with history of IDDM that presented to ED with SIRS and DKA, admitted to ICU. - Patient Problems (1) SIRS (systemic inflammatory response syndrome) Code(s): R65.10 - SIRS OF NON-INFECTIOUS ORIGIN W/O ACUTE ORGAN DYSFUNCTION SNOMED Code(s): 273465103 Comment: - Mild tachycardia noted at times, afebrile, no hypotension, white count resolving - Etiology unclear, likely viral as no source identified on imaging, cultures negative - Resolved (2) DKA (diabetic ketoacidoses) Code(s): E13.10 - OTH DIABETES MELLITUS WITH KETOACIDOSIS WITHOUT COMA SNOMED Code(s): 706006805 Comment: - DKA protocol completed, insulin drip DC yesterday, GAP closed - Sugars remain somewhat labile, will add 4 units humalog premeal with SS coverage to carb ratio coverage (1u:10 carb) with accuchecks AC and HS - Continue lantus 22 units daily - 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 (3) Electrolyte and fluid disorder Code(s): E87.8 - OTH DISORDERS OF ELECTROLYTE AND FLUID BALANCE, NEC SNOMED Code(s): 16264403 Comment: - Restart IVF, NS with 40 KCL - KPhos 15mmol x 2 - Recheck lytes this evening (4) AMAIRANI (acute kidney injury) Code(s): N17.9 - ACUTE KIDNEY FAILURE, UNSPECIFIED SNOMED Code(s): 19466102 Comment: - Creat improved but still above baseline at 1.18 - Recheck BMP this evening (5) Dehydration Code(s): E86.0 - DEHYDRATION SNOMED Code(s): 23458020 Comment: - Continue IVF and encourage free water intake Status and Disposition: Full code Inpatient, downgrade from ICU. Recheck labs this evening, EDWIN chin to home in AM.
[2018-09-16] MEDS ORDERED: Insulin LISPRO* 1 UNITS UNIT SUBCUT SCH (12:00)
[2018-09-16] MEDS: Insulin GLARGINE(*) 1 UNITS UNIT SUBCUT SCH (18:07)
[2018-09-16 19:17] LABS: BUN/Creatinine Ratio 13.5 (8-20); Calcium 8.4 mg/dL (8.6-10.3); EGFR African American 110.4 (>60); EGFR Non-African American 91.2 (>60); Phosphorus 1.6 mg/dL (2.5-5.0); Potassium 3.6 mmol/L (3.5-5.0)
[2018-09-16 20:50] LABS: BUN/Creatinine Ratio 12.6 (8-20); Calcium 8.7 mg/dL (8.6-10.3); EGFR African American 102.4 (>60); EGFR Non-African American 84.6 (>60); Potassium 3.6 mmol/L (3.5-5.0)
[2018-09-16] MEDS: Enoxaparin(*) 30 MG/0.3 ML SYR SUBCUT SCH (21:40)
[2018-09-17] MEDS: NS 0.9% w/ 40 Meq KCL 1000 ML* 1,000 ML IV SCH (01:43)
[2018-09-17] MEDS: cefTRIAXone VIAL(*) 500 MG in NS 0.9% 50 ML* 50 ML IVPB SCH (02:55)
[2018-09-17] MEDS: Insulin LISPRO* 1 UNITS UNIT SUBCUT SCH ×2 (08:03→08:05)
[2018-09-17 09:06] LABS: ABS Basophils 0 10^3/ul (0-0.2); ABS Eosinophils 0.4 10^3/ul (0-0.6); ABS Lymphocytes 1.4 10^3/ul (1.0-4.8); ABS Monocytes 0.7 10^3/ul (0-0.8); ABS Neutrophils 2.3 10^3/ul (1.5-7.7); ABS Nucleated RBC 0 10^3/ul; Eosinophil % 7.6 %; Hematocrit 34 % (36-46); Hemoglobin 11.9 g/dL (14.0-18.0); Lymphocyte % 29.5 %; Mean Corpuscular HGB Conc 36 g/dL (31-36); Mean Corpuscular Hemoglobin 30 pg (27-31); Mean Corpuscular Volume 84 fL (80-94); Mean Platelet Volume 6.7 fL (7.4-10.4); Nucleated Red Blood Cells % 0.1; Platelet Count 161 10^3/uL (150-450); Red Cell Distribution Width 13 % (10.5-15); White Blood Count 4.9 10^3/uL (3.5-10.8)
[2018-09-17 09:22] LABS: BUN/Creatinine Ratio 11.7 (8-20); Calcium 8.2 mg/dL (8.6-10.3); EGFR African American 130.5 (>60); EGFR Non-African American 107.8 (>60); Magnesium 1.9 mg/dL (1.9-2.7); Phosphorus 1.3 mg/dL (2.5-5.0); Potassium 3.4 mmol/L (3.5-5.0)
[2018-09-17 11:12] VITALS: BP 153/84
--- NOTE | 2018-09-17 21:41 | DS ---
CC: Dr. Hollins * DISCHARGE SUMMARY: DATE OF ADMISSION: 09/14/18 DATE OF DISCHARGE: 09/17/18 DAIRY GRAZER: Dr. Hollins. ATTENDING PHYSICIAN: Dr. Mead.* (DICTATED BY KLARISSA BECKFORD NP) HOSPITAL COURSE: Please refer to admission H and P by Dr. Joanna Powell on 09/14/18 , however, in short, Mr. Bliss is a 48-year-old male with a past medical history of insulin-dependent diabetes mellitus, who reported several days of flu -like symptoms. He also had body aches and pains, which started off in the lower back. The patient was correlating his aches and pains and symptoms with what he referred to as a ketogenic diet that he has started for weight loss several days before, however, he also reported chills and low-grade fevers, some nausea and vomiting as well. The patient is a known diabetic for 15 years and stated that his sugars began climbing even though he was not eating more and his carb count was very low. The patient finally became so weak that his brought him to the emergency department for evaluation. Upon evaluation in the ED, his blood sugar was found to be over 600 and he was admitted for diabetic ketoacidosis. He was also found to be profoundly dehydrated with an acute kidney injury and meeting SIRS criteria. The patient had imaging of the chest, abdomen, pelvis and lower lumbar spine and also urinalysis. He was appearing infected at admission, however, his workup and imaging were negative. His blood cultures were negative. His urinalysis was negative. Imaging did not reveal any abscesses or any further indicators that he had an infectious source. It is thought that the patient had a viral gastroenteritis that contribute to his symptoms and pushed the patient into diabetic ketoacidosis. He was aggressively hydrated and started on an insulin drip at 0.1 units/kg/ hour. He received 4 L of normal saline with 30 mEq of potassium. He was placed on bicarbonate drip, as he required buffering agents while his DKA was resolving. He was transitioned to D5 and half normal with 40 mEq of potassium when his sugar was in the 200 range. As his sugars decreased and his electrolytes were repleted, he was eventually weaned off of the insulin drip. We monitored his BMP every 4 hours. He was started on long-acting insulin as a transition point and then was placed on sliding scale. The patient was not happy with being on long- acting insulin as he does not take long-acting at home. He reluctantly accepted long-acting insulin during his acute illness. He did have some issues with elevated sugar again, however, at one point after his anion gap had closed, it did open back up again. He was restarted on normal saline with potassium again and seemed to do well. The patient also was receiving ceftriaxone initially, which was stopped after his blood cultures were negative and urine cultures were negative. Again, he did not have any imaging that revealed infectious source. The patient's kidney injury began to resolve with hydration and renal function was back to normal by the time the patient was being discharged. DISCHARGE DIAGNOSES: 1. Insulin-dependent diabetes mellitus with diabetic ketoacidosis. 2. Systemic inflammatory response syndrome. 3. Viral infection. 4. Low back pain secondary systemic inflammatory response syndrome. 5. Acute kidney injury, now resolved. 6. Dehydration secondary to insulin-dependent diabetes mellitus with diabetic ketoacidosis. DISCHARGE MEDICATIONS: Include home medications: 1. Humalog. The patient takes Humalog sliding scale at home before meals and at bedtime. 2. Invokamet 3. Potassium chloride 20 mEq p.o. daily and magnesium supplement 400 mg 1 tab p.o. daily (new) REVIEW OF SYSTEMS: On day of discharge, the patient denies any fever, fatigue, or chills. No shortness of breath, no chest pain, no abdominal pain, no nausea , no vomiting, no urinary complaints, no bowel complaints. No arthralgias or myalgias and no further conditional complaints. PHYSICAL EXAMINATION: Reveals a well-appearing male, in no acute distress. Vital signs are blood pressure 153/84, heart rate 78, respiratory rate 16, O2 saturation 99% on room air, temperature of 96.3. HEENT: The patient is atraumatic, normocephalic. PERRLA. Nonicteric sclerae. Oral mucosa is moist. Tongue is midline. Neck is supple, nontender. No JVD noted. No carotid bruit auscultated. Cardiovascular: S1, S2 present. No murmurs, gallops, or rubs noted. Rate and rhythm are regular. Lungs are clear bilaterally to auscultation with no wheezing, rhonchi, or rales. Abdomen is soft, nontender, nondistended. Positive bowel sounds in all 4 quadrants. No organomegaly noted. is deferred. Musculoskeletal: There is no clubbing, no cyanosis, no edema. He has +2 distal pulses palpable. Full range of motion and steady gait. Gross motor and sensation are intact. Neurologic: Grossly intact with no focal deficits. Psychiatric: He is cooperative and appropriate. DIAGNOSTIC STUDIES/LAB DATA: WBCs 4.9, RBCs 4.00, hemoglobin 11.9, hematocrit 34, platelets 161. Sodium 133, potassium 4.3, chloride 108, CO2 of 7, anion gap 18, BUN 19, creatinine 1.41, GFR 53.6, glucose 175, calcium 8.4, magnesium 1.9. Urinalysis showed 1+ protein, 2+ ketones, 3+ blood. Blood gas at admission , venous blood gas showed pH of less than 7, CO2 of 18, PO2 of 64, bicarb unable to calculate. O2 saturation 90.2 with the base access unable to calculate. DISPOSITION: The patient was discharged to home in stable condition in the care of his . All questions were answered. The patient stated understanding of his discharge instructions, diagnosis, and followups. FOLLOWUP: The patient was instructed to follow up with his taxation inspector in next 1 to 2 days to discuss his current insulin regimen and perhaps make changes to his current insulin regimen given his acute illness this week. TIME SPENT: Approximately 45 minutes discussing discharge plan of care with the patient and his and coordinating medications and followups. KLARISSA BECKFORD NP [id number]/[facility] [place] #: [id number] [facility] HOSPITALHerrera
== END 2018-09-17 12:50 | disposition home or self-care (01) | DRG 638 ==
LOC: ED 18:37 → ICU 22:02 → MED 09-16 07:19
PROVIDERS: ADMIT Internal Medicine; ATTEND Internal Medicine
DX: E11.10 Type 2 diabetes mellitus with ketoacidosis without coma (principal); R65.10 Systemic inflammatory response syndrome (SIRS) of non-infectious origin without acute organ dysfunction; N17.9 Acute kidney failure, unspecified; E87.8 Other disorders of electrolyte and fluid balance, not elsewhere classified; G89.29 Other chronic pain; M54.5 Low back pain; B34.9 Viral infection, unspecified; Z83.3 Family history of diabetes mellitus; E66.9 Obesity, unspecified; E86.0 Dehydration; Z88.0 Allergy status to penicillin; Z79.4 Long term (current) use of insulin; Z81.1 Family history of alcohol abuse and dependence; Z80.8 Family history of malignant neoplasm of other organs or systems; Z83.49 Family history of other endocrine, nutritional and metabolic diseases; Z72.89 Other problems related to lifestyle; Z68.33 Body mass index [BMI] 33.0-33.9, adult
CPT/HCPCS: 36415; 71045; 72100; 74177; 80048; 80053; 80061; 81003; 81015; 82550; 82803; 83036; 83605; 83690; 83735; 84100; 84153; 85025; 86140; 87040; 87641; 93005; 99285; A9270-GY; G0103; J0696; J1650; J1815; J2270; J3475; J3480; Q9967

== ENCOUNTER 2021-05-14 13:54 | Inpatient (IN) ==
[2021-05-14] MEDS ORDERED: NORMOSOL-R pH 7.4 1000 mL BAG 1,000 ML IV ONE (14:00)
[2021-05-14] MEDS ORDERED: Dextrose 50% Syringe 50 ml 25 GM/50 ML SYRINGE IV PUSH PRN (14:00)
[2021-05-14 15:05] LABS: Hematocrit 43 % (42-52); Hemoglobin 14.4 g/dL (14.0-18.0); Mean Corpuscular HGB Conc 33 g/dL (31-36); Mean Corpuscular Hemoglobin 31 pg (27-31); Mean Corpuscular Volume 93 fL (80-94); Mean Platelet Volume 7.5 fL (7.4-10.4); Platelet Count 543 10^3/uL (150-450); Red Blood Count 4.69 10^6 /uL (4.18-5.48); Red Cell Distribution Width 13 % (10-15); White Blood Count 10.1 10^3/uL (3.5-10.8)
[2021-05-14 15:19] LABS: Troponin I 0.01 ng/mL (<0.03)
[2021-05-14 15:20] LABS: ALT 25 U/L (7-52); AST 21 U/L (13-39); Albumin 4.1 g/dL (3.2-5.2); Alkaline Phosphatase 78 U/L (35-149); Blood Urea Nitrogen 25 mg/dL (6-24); Calcium 9.2 mg/dL (8.6-10.3); Chloride 99 mmol/L (101-111); Creatine Kinase 101 U/L (10-223); Globulin 4.2 g/dL (2-4); Magnesium 2.4 mg/dL (1.9-2.7); Phosphorus 6.4 mg/dL (2.5-5.0); Sodium 132 mmol/L (135-145); Total Protein 8.3 g/dL (6.4-8.9); eGFR CKD-EPI 56.4 (>60)
[2021-05-14 15:28] LABS: CO2 Carbon Dioxide < 7 mmol/L (22-32); Glucose 633 mg/dL (70-100); Potassium 5.9 mmol/L (3.5-5.0)
[2021-05-14] MEDS: Insulin Infusion 100unit/100mL 100 UNIT/100 ML BAG IV SCH ×2 (15:42→22:55)
[2021-05-14 15:46] LABS: ABS Basophils 0.1 10^3/ul (0-0.2); ABS Lymphocytes 1.3 10^3/ul (1.0-4.8); ABS Monocytes 1.3 10^3/ul (0-0.8); ABS Neutrophils 7.4 10^3/ul (1.5-7.7); Lymphocyte % 13.1 %; Nucleated Red Blood Cells % 0.1; RBC Morphology Normal (Normal)
[2021-05-14 15:54] LABS: TSH Ultra Thyroid Stim Horm 0.38 mcIU/mL (0.34-5.60)
[2021-05-14] MEDS ORDERED: NORMOSOL-R pH 7.4 1000 mL BAG 1,000 ML IV SCH (16:00)
[2021-05-14 16:07] LABS: PCO2 Arterial 28 mmHg (35-45)
[2021-05-14 16:15] LABS: PO2 Arterial 55 mmHg (80-100)
[2021-05-14 16:21] LABS: Urine Appearance Clear; Urine Bilirubin Negative (Negative); Urine Blood 2+ (Negative); Urine Color Straw; Urine Glucose 3+(>=500 mg/dL) (Negative); Urine Ketones 2+ (Negative); Urine Nitrite Negative (Negative); Urine Protein 1+(30 mg/dL) (Negative); Urine Specific Gravity 1.018 (1.002-1.030); Urine Urobilinogen Negative (Negative)
[2021-05-14 16:27] LABS: Urine Bacteria Absent (Absent); Urine Red Blood Cell Trace(0-2/hpf) (Absent); Urine Squamous Epithelial Cell Present (Absent); Urine White Blood Cell Absent (Absent)
[2021-05-14] MEDS ORDERED: Sodium Bicarbonate 8.4% SYR 50 ml SYRINGE IV ONE ×2 (16:41→20:33)
[2021-05-14] MEDS ORDERED: Propofol 10 mg/ml 100 ML BTL 100 ML IV ONE (16:41)
[2021-05-14] MEDS ORDERED: Rocuronium 50 mg VIAL 10 mg/ml 5 ml VIAL (50 mg) ONE (16:41)
[2021-05-14] MEDS ORDERED: Succinylcholine 200 mg VIAL 20 mg/ml 10 ml VIAL (200 mg) ONE (16:41)
[2021-05-14] MEDS ORDERED: Etomidate 40 mg/20 ml (2 MG/ML) 20 ml VIAL (40 mg) ONE (16:58)
[2021-05-14] MEDS ORDERED: Enoxaparin 40 MG/0.4 ML SYR SUBCUT SCH (17:00)
[2021-05-14 17:20] LABS: Blood Urea Nitrogen 25 mg/dL (6-24); Calcium 8.8 mg/dL (8.6-10.3); Chloride 100 mmol/L (101-111); Magnesium 2.6 mg/dL (1.9-2.7); Phosphorus 6.3 mg/dL (2.5-5.0); Sodium 135 mmol/L (135-145); eGFR CKD-EPI 59.2 (>60)
[2021-05-14 17:23] LABS: CO2 Carbon Dioxide < 7 mmol/L (22-32); Glucose 661 mg/dL (70-100); Potassium 5.7 mmol/L (3.5-5.0); Urine Benzodiazepine Screen None Detected (None Detect); Urine Cannabinoids Screen None Detected (None Detect); Urine Opiates Screen None Detected (None Detect)
[2021-05-14] MEDS ORDERED: Propofol 10 mg/ml 100 ML BTL 100 ML ONE (18:00)
[2021-05-14] MEDS ORDERED: Propofol 10 MG/ML 20 ML BTL IV PUSH ONE (18:17)
[2021-05-14] MEDS ORDERED: Midazolam 2 mg/2 ml VIAL 1 mg/ml 2 ml VIAL (2 mg) IV SLOW PU ONE (18:25)
[2021-05-14 18:59] LABS: Glucose Confirmatory 628 mg/dL (70-100)
[2021-05-14] MEDS ORDERED: Sodium Bicarb 8.4% Vial 50 ML 100 MEQ in D5W 1000 ml BAG 1,000 ML IV SCH (19:00)
[2021-05-14] MEDS: Sodium Bicarb 8.4% Vial 50 ML 100 MEQ in D5W 1000 ml BAG 1,000 ML IV SCH (19:33)
[2021-05-14] MEDS: Pantoprazole VIAL 40 MG VIAL IV SCH (19:33)
[2021-05-14] MEDS: methylPREDNISolone SOD 40 mg/ml 1 ml VIAL IV SCH (19:33)
[2021-05-14 19:55] LABS: Blood Urea Nitrogen 31 mg/dL (6-24); Calcium 8.4 mg/dL (8.6-10.3); Chloride 102 mmol/L (101-111); Sodium 135 mmol/L (135-145); eGFR CKD-EPI 46.8 (>60)
[2021-05-14 20:06] LABS: Potassium 5.8 mmol/L (3.5-5.0)
[2021-05-14 20:07] LABS: Magnesium 2.7 mg/dL (1.9-2.7); Phosphorus 6.4 mg/dL (2.5-5.0)
[2021-05-14 20:10] LABS: CO2 Carbon Dioxide < 7 mmol/L (22-32)
[2021-05-14 20:11] LABS: Glucose 610 mg/dL (70-100)
[2021-05-14 20:13] LABS: Glucose Confirmatory 610 mg/dL (70-100)
[2021-05-14 20:15] LABS: PCO2 Arterial 22 mmHg (35-45); PO2 Arterial 119 mmHg (80-100)
[2021-05-14 20:28] LABS: Osmolality Serum 343 mOsm/kg (275-295)
[2021-05-14] MEDS: Propofol 10 mg/ml 100 ML BTL 100 ML IV SCH ×2 (20:45→22:55)
[2021-05-14] MEDS: Azithromycin 500 mg/250 ml NS 500 MG/250 ML BAG IVPB SCH (20:52)
[2021-05-14] MEDS: Morphine 2 MG/ML SYRINGE IV PRN (20:53)
[2021-05-14 21:01] LABS: Glucose Confirmatory 635 mg/dL (70-100)
[2021-05-14 21:36] LABS: Glucose Confirmatory 610 mg/dL (70-100)
[2021-05-14] MEDS: Lactulose 30 ml UDC NG TUBE SCH (21:59)
[2021-05-14 22:34] LABS: Glucose Confirmatory 574 mg/dL (70-100)
[2021-05-14 23:21] LABS: PCO2 Arterial 21 mmHg (35-45); PO2 Arterial 118 mmHg (80-100)
[2021-05-14 23:36] LABS: Calcium 7.6 mg/dL (8.6-10.3); Chloride 102 mmol/L (101-111); Magnesium 2.4 mg/dL (1.9-2.7); Potassium 4.1 mmol/L (3.5-5.0); Sodium 140 mmol/L (135-145)
[2021-05-14 23:42] LABS: Blood Urea Nitrogen 35 mg/dL (6-24); eGFR CKD-EPI 39.2 (>60)
[2021-05-15 00:01] LABS: Anion Gap 30 mmol/L (2-11); CO2 Carbon Dioxide 8 mmol/L (22-32); Glucose Confirmatory 568 mg/dL (70-100)
[2021-05-15 00:04] LABS: Glucose 568 mg/dL (70-100)
[2021-05-15] MEDS ORDERED: Lactated Ringers 500 ml BAG 500 ML IV ONE ×2 (00:29→04:00)
[2021-05-15] MEDS ORDERED: KCL 20 MEQ/100 ML IVPREMIX 20 MEQ/100 ML BAG IV ONE (00:29)
[2021-05-15 00:49] LABS: Glucose Confirmatory 529 mg/dL (70-100)
[2021-05-15] MEDS ORDERED: Calcium Gluconate 2 GM in NS 0.9% 100 ml BAG 100 ML IV ONE (01:00)
[2021-05-15] MEDS: Sodium Bicarb 8.4% Vial 50 ML 100 MEQ in D5W 1000 ml BAG 1,000 ML IV SCH (01:16)
[2021-05-15 01:44] LABS: Glucose Confirmatory 489 mg/dL (70-100)
[2021-05-15] MEDS: Morphine 2 MG/ML SYRINGE IV PRN ×2 (02:05→19:55)
[2021-05-15 02:31] LABS: Glucose Confirmatory 472 mg/dL (70-100)
[2021-05-15] MEDS: Lactulose 30 ml UDC NG TUBE SCH ×4 (03:04→22:07)
[2021-05-15] MEDS: methylPREDNISolone SOD 40 mg/ml 1 ml VIAL IV SCH ×3 (03:04→19:54)
[2021-05-15 03:39] LABS: Blood Urea Nitrogen 35 mg/dL (6-24); CO2 Carbon Dioxide 15 mmol/L (22-32); Calcium 8.2 mg/dL (8.6-10.3); Chloride 103 mmol/L (101-111); Glucose 445 mg/dL (70-100); Glucose Confirmatory 445 mg/dL (70-100); Magnesium 2.2 mg/dL (1.9-2.7); Sodium 138 mmol/L (135-145); eGFR CKD-EPI 34.8 (>60)
[2021-05-15 03:43] LABS: Anion Gap 20 mmol/L (2-11); Phosphorus 1.2 mg/dL (2.5-5.0); Potassium 3.4 mmol/L (3.5-5.0)
[2021-05-15 04:23] LABS: ABS Lymphocytes 0.6 10^3/ul (1.0-4.8); ABS Monocytes 0.8 10^3/ul (0-0.8); ABS Neutrophils 5.5 10^3/ul (1.5-7.7); Hematocrit 33 % (42-52); Hemoglobin 11.9 g/dL (14.0-18.0); Lymphocyte % 8.8 %; Mean Corpuscular HGB Conc 36 g/dL (31-36); Mean Corpuscular Hemoglobin 31 pg (27-31); Mean Corpuscular Volume 86 fL (80-94); Mean Platelet Volume 6.5 fL (7.4-10.4); Platelet Count 335 10^3/uL (150-450); Red Blood Count 3.85 10^6 /uL (4.18-5.48); Red Cell Distribution Width 13 % (10-15); White Blood Count 6.9 10^3/uL (3.5-10.8)
[2021-05-15] MEDS ORDERED: Potassium Phosphate IV 15 MMOLE in NS 0.9% 250 ml 250 ML IVPB ONE ×2 (04:30→16:30)
[2021-05-15 04:36] LABS: Glucose Confirmatory 421 mg/dL (70-100)
[2021-05-15] MEDS: KCL 20 MEQ/100 ML IVPREMIX 20 MEQ/100 ML BAG IV SCH ×2 (04:44→08:07)
[2021-05-15 05:37] LABS: Glucose Confirmatory 411 mg/dL (70-100)
[2021-05-15 05:38] LABS: PCO2 Arterial 38 mmHg (35-45); PO2 Arterial 135 mmHg (80-100)
[2021-05-15] MEDS: Chlorhexidine MOUTHWASH 0.12% 15 ML UDC TOPICAL SCH ×5 (05:52→22:07)
[2021-05-15] MEDS: Propofol 10 mg/ml 100 ML BTL 100 ML IV SCH ×5 (05:59→22:20)
[2021-05-15 06:30] LABS: Glucose Confirmatory 416 mg/dL (70-100)
[2021-05-15] MEDS ORDERED: Sodium Bicarb 8.4% Vial 50 ML 100 MEQ in D5W 1000 ml BAG 1,000 ML IV SCH (06:30)
[2021-05-15 07:14] LABS: CO2 Carbon Dioxide 18 mmol/L (22-32); Calcium 8.3 mg/dL (8.6-10.3); Chloride 105 mmol/L (101-111); Magnesium 2.1 mg/dL (1.9-2.7); Sodium 139 mmol/L (135-145)
[2021-05-15 07:15] LABS: Anion Gap 16 mmol/L (2-11); Potassium 3.3 mmol/L (3.5-5.0)
[2021-05-15 07:20] LABS: Blood Urea Nitrogen 36 mg/dL (6-24); Glucose 411 mg/dL (70-100); eGFR CKD-EPI 32.2 (>60)
[2021-05-15 07:38] LABS: Phosphorus < 1.0 mg/dL (2.5-5.0)
[2021-05-15] MEDS ORDERED: NORMOSOL-R pH 7.4 1000 mL BAG 1,000 ML IV SCH (08:00)
[2021-05-15 10:04] LABS: Calcium 8.1 mg/dL (8.6-10.3); Magnesium 2.1 mg/dL (1.9-2.7); Potassium 3.8 mmol/L (3.5-5.0); eGFR CKD-EPI 30.2 (>60)
[2021-05-15] MEDS ORDERED: Lorazepam PYXIS KEY ONE (10:47)
[2021-05-15] MEDS ORDERED: LORazepam 2 mg VIAL 1 ml ONE (10:48)
[2021-05-15] MEDS: cefTRIAXone 1 gm/50 mL NS BAG 1 GM/50 ML BAG IVPB SCH (11:16)
[2021-05-15] MEDS: Enoxaparin 60 MG/0.6 ML SYR SUBCUT SCH ×2 (11:41→19:55)
[2021-05-15 12:45] LABS: Glucose Confirmatory 576 mg/dL (70-100)
[2021-05-15 12:47] LABS: Urine Creatinine Concentration 17.87 mg/dL
[2021-05-15 13:46] LABS: Calcium 7.9 mg/dL (8.6-10.3); Magnesium 2.1 mg/dL (1.9-2.7); Phosphorus 1.5 mg/dL (2.5-5.0); Potassium 4.3 mmol/L (3.5-5.0); eGFR CKD-EPI 26.9 (>60)
[2021-05-15 14:08] LABS: Glucose Confirmatory 664 mg/dL (70-100)
[2021-05-15 14:56] LABS: Glucose Confirmatory 439 mg/dL (70-100)
[2021-05-15] MEDS ORDERED: CMCS:Baricitinib 2 MG TAB (NF) PO SCH (15:46)
[2021-05-15 16:03] LABS: Glucose Confirmatory 665 mg/dL (70-100)
[2021-05-15 16:49] LABS: Glucose Confirmatory 452 mg/dL (70-100)
[2021-05-15] MEDS ORDERED: Potassium & Sodium Phos 250 mg = 1 PACKET PO SCH ×2 (17:00→21:00)
[2021-05-15 17:43] LABS: Glucose Confirmatory 404 mg/dL (70-100)
[2021-05-15 18:34] LABS: Blood Urea Nitrogen 42 mg/dL (6-24); CO2 Carbon Dioxide 17 mmol/L (22-32); Calcium 7.9 mg/dL (8.6-10.3); Chloride 104 mmol/L (101-111); Sodium 137 mmol/L (135-145); eGFR CKD-EPI 22.5 (>60)
[2021-05-15 18:39] LABS: Glucose 561 mg/dL (70-100); Glucose Confirmatory 561 mg/dL (70-100)
[2021-05-15 18:52] LABS: Anion Gap 16 mmol/L (2-11); Potassium 3.6 mmol/L (3.5-5.0)
[2021-05-15 19:20] LABS: Phosphorus < 1.0 mg/dL (2.5-5.0)
[2021-05-15] MEDS ORDERED: Potassium & Sodium Phos 250 mg = 1 PACKET PO ONE ×2 (19:25)
[2021-05-15 19:37] LABS: Glucose Confirmatory 530 mg/dL (70-100)
[2021-05-15] MEDS: Azithromycin 500 mg/250 ml NS 500 MG/250 ML BAG IVPB SCH (19:54)
[2021-05-15] MEDS: CMCS:Baricitinib 2 MG TAB (NF) PO SCH (19:54)
[2021-05-15] MEDS: Pantoprazole VIAL 40 MG VIAL IV SCH (19:55)
[2021-05-15 20:31] LABS: Glucose Confirmatory 463 mg/dL (70-100)
[2021-05-15 21:35] LABS: Glucose Confirmatory 419 mg/dL (70-100)
[2021-05-15 22:39] LABS: Blood Urea Nitrogen 42 mg/dL (6-24); CO2 Carbon Dioxide 21 mmol/L (22-32); Calcium 7.8 mg/dL (8.6-10.3); Chloride 107 mmol/L (101-111); Glucose 376 mg/dL (70-100); Sodium 139 mmol/L (135-145); eGFR CKD-EPI 21.9 (>60)
[2021-05-15 23:00] LABS: Anion Gap 11 mmol/L (2-11)
[2021-05-15 23:34] LABS: Magnesium 2.3 mg/dL (1.9-2.7)
[2021-05-15 23:47] LABS: Calcium 7.8 mg/dL (8.6-10.3); eGFR CKD-EPI 22.1 (>60)
[2021-05-16 00:09] LABS: Phosphorus 1.3 mg/dL (2.5-5.0); Potassium 3.5 mmol/L (3.5-5.0)
[2021-05-16] MEDS: Insulin Infusion 100unit/100mL 100 UNIT/100 ML BAG IV SCH ×2 (00:15→11:12)
[2021-05-16] MEDS ORDERED: Potassium Phosphate IV 15 MMOLE in NS 0.9% 250 ml 250 ML IVPB ONE (01:00)
[2021-05-16] MEDS ORDERED: KCL 20 MEQ/100 ML IVPREMIX 20 MEQ/100 ML BAG IV SCH (01:00)
[2021-05-16] MEDS ORDERED: Calcium Gluconate 2 GM in NS 0.9% 100 ml BAG 100 ML IV ONE (01:00)
[2021-05-16] MEDS: Propofol 10 mg/ml 100 ML BTL 100 ML IV SCH ×4 (01:01→10:14)
[2021-05-16] MEDS: Chlorhexidine MOUTHWASH 0.12% 15 ML UDC TOPICAL SCH ×6 (01:12→21:06)
[2021-05-16] MEDS: Morphine 2 MG/ML SYRINGE IV PRN ×2 (02:16→20:20)
[2021-05-16 03:27] LABS: Calcium 7.7 mg/dL (8.6-10.3); eGFR CKD-EPI 19.5 (>60)
[2021-05-16 03:49] LABS: Magnesium 2.4 mg/dL (1.9-2.7); Potassium 3.5 mmol/L (3.5-5.0)
[2021-05-16 03:50] LABS: Phosphorus 2.9 mg/dL (2.5-5.0)
[2021-05-16] MEDS: Lactulose 30 ml UDC NG TUBE SCH ×2 (03:56→09:06)
[2021-05-16] MEDS: KCL premix 10 MEQ/50 ML x 4 RUNS IV SCH ×4 (03:56→05:38)
[2021-05-16] MEDS: methylPREDNISolone SOD 40 mg/ml 1 ml VIAL IV SCH ×3 (03:56→19:36)
[2021-05-16] MEDS ORDERED: D5W 1/2 NS KCl 20 meq 1000 ml 1,000 ML IV SCH (04:00)
[2021-05-16 06:14] LABS: Blood Urea Nitrogen 43 mg/dL (6-24); CO2 Carbon Dioxide 21 mmol/L (22-32); Glucose 168 mg/dL (70-100); eGFR CKD-EPI 19.8 (>60)
[2021-05-16 06:20] LABS: Chloride 112 mmol/L (101-111); Sodium 146 mmol/L (135-145)
[2021-05-16 06:41] LABS: Hematocrit 28 % (42-52); Mean Corpuscular HGB Conc 36 g/dL (31-36); Mean Corpuscular Hemoglobin 31 pg (27-31); Mean Corpuscular Volume 86 fL (80-94); Mean Platelet Volume 6.9 fL (7.4-10.4); Platelet Count 318 10^3/uL (150-450); Red Blood Count 3.21 10^6 /uL (4.18-5.48); Red Cell Distribution Width 13 % (10-15); White Blood Count 5.1 10^3/uL (3.5-10.8)
[2021-05-16 06:42] LABS: ABS Lymphocytes 0.4 10^3/ul (1.0-4.8); ABS Monocytes 0.7 10^3/ul (0-0.8); ABS Neutrophils 4.1 10^3/ul (1.5-7.7); Eosinophil % 0.1 %; Lymphocyte % 7.1 %
[2021-05-16 07:37] LABS: Anion Gap 13 mmol/L (2-11)
[2021-05-16 08:15] LABS: Calcium 7.9 mg/dL (8.6-10.3); Magnesium 2.4 mg/dL (1.9-2.7); eGFR CKD-EPI 19.8 (>60)
[2021-05-16 09:04] LABS: Phosphorus 3.7 mg/dL (2.5-5.0); Potassium 4.1 mmol/L (3.5-5.0)
[2021-05-16] MEDS: Enoxaparin 60 MG/0.6 ML SYR SUBCUT SCH (09:04)
[2021-05-16] MEDS: cefTRIAXone 1 gm/50 mL NS BAG 1 GM/50 ML BAG IVPB SCH (09:06)
[2021-05-16] MEDS: Dexmedetomidine 1,000 MCG in NS 0.9% 250 ml 240 ML IV SCH ×2 (10:14→19:36)
[2021-05-16] MEDS ORDERED: Enoxaparin 40 MG/0.4 ML SYR SUBCUT SCH (11:00)
[2021-05-16] MEDS ORDERED: Bumetanide IV 0.25 MG/ML 4 ml VIAL (1 mg) SLOW PUSH ONE (12:06)
[2021-05-16] MEDS ORDERED: Bumetanide IV 0.25 MG/ML 4 ml VIAL (1 mg) ONE (12:07)
[2021-05-16] MEDS ORDERED: Insulin GLARGINE 100 un/ml 10 ml VIAL ONE (12:24)
[2021-05-16] MEDS ORDERED: Insulin GLARGINE 100 un/ml 10 ml VIAL SUBCUT SCH (13:00)
[2021-05-16 15:12] LABS: Calcium 7.9 mg/dL (8.6-10.3); Magnesium 2.2 mg/dL (1.9-2.7); Phosphorus 4.2 mg/dL (2.5-5.0); Potassium 3.3 mmol/L (3.5-5.0); eGFR CKD-EPI 18.2 (>60)
[2021-05-16] MEDS ORDERED: Bumetanide IV 10 MG in Premix IV 0 ML IV SCH ×2 (16:00→17:00)
[2021-05-16] MEDS ORDERED: Dextrose 50% Syringe 50 ml 25 GM/50 ML SYRINGE IV PUSH PRN ×2 (16:16→16:32)
[2021-05-16] MEDS ORDERED: Insulin GLARGINE 100 un/ml 10 ml VIAL SUBCUT ONE (16:16)
[2021-05-16] MEDS ORDERED: Potassium Chloride LIQUID 20 MEQ/15 ML LIQUID PO ONE ×3 (16:28→21:30)
[2021-05-16] MEDS: Bumetanide IV 10 MG in Premix IV 0 ML IV SCH ×2 (17:09→22:00)
[2021-05-16 17:56] LABS: Calcium 7.6 mg/dL (8.6-10.3); Magnesium 2.2 mg/dL (1.9-2.7); Phosphorus 4.6 mg/dL (2.5-5.0); Potassium 3.7 mmol/L (3.5-5.0)
[2021-05-16] MEDS: Pantoprazole VIAL 40 MG VIAL IV SCH (19:35)
[2021-05-16] MEDS: CMCS:Baricitinib 2 MG TAB (NF) PO SCH (19:36)
[2021-05-16] MEDS: Azithromycin 500 mg/250 ml NS 500 MG/250 ML BAG IVPB SCH (20:00)
[2021-05-16] MEDS ORDERED: Lorazepam PYXIS KEY ONE (20:55)
[2021-05-16] MEDS ORDERED: LORazepam 2 mg VIAL 1 ml ONE (20:55)
[2021-05-17 00:15] LABS: Calcium 7.6 mg/dL (8.6-10.3); Magnesium 2.1 mg/dL (1.9-2.7); Phosphorus 4.1 mg/dL (2.5-5.0); Potassium 4.2 mmol/L (3.5-5.0)
[2021-05-17] MEDS ORDERED: LORazepam 2 mg VIAL 1 ml IV PUSH ONE (00:41)
[2021-05-17] MEDS ORDERED: Lorazepam PYXIS KEY PRN (00:41)
[2021-05-17] MEDS ORDERED: Dextrose 50% Syringe 50 ml 25 GM/50 ML SYRINGE IV PUSH PRN ×5 (00:42→18:54)
[2021-05-17] MEDS: Chlorhexidine MOUTHWASH 0.12% 15 ML UDC TOPICAL SCH ×6 (00:55→21:30)
[2021-05-17] MEDS: methylPREDNISolone SOD 40 mg/ml 1 ml VIAL IV SCH ×2 (03:00→15:15)
[2021-05-17] MEDS: Bumetanide IV 10 MG in Premix IV 0 ML IV SCH (04:35)
[2021-05-17 04:56] LABS: Albumin 3.1 g/dL (3.2-5.2); Albumin/Globulin Ratio 0.9 (1-3); Calcium 7.9 mg/dL (8.6-10.3); Globulin 3.6 g/dL (2-4); Magnesium 2.2 mg/dL (1.9-2.7); Potassium 3.9 mmol/L (3.5-5.0); Total Bilirubin 0.4 mg/dL (0.2-1.0); Total Protein 6.7 g/dL (6.4-8.9); eGFR CKD-EPI 15.6 (>60)
[2021-05-17 04:59] LABS: Glucose Confirmatory 531 mg/dL (70-100)
[2021-05-17] MEDS ORDERED: D5W 1/2 NS 1000 ml BAG 1,000 ML IV SCH (05:00)
[2021-05-17 05:02] LABS: Calcium 7.6 mg/dL (8.6-10.3)
[2021-05-17] MEDS: Insulin Infusion 100unit/100mL 100 UNIT/100 ML BAG IV SCH ×2 (05:18→13:11)
[2021-05-17 05:38] LABS: Glucose Confirmatory 433 mg/dL (70-100)
[2021-05-17] MEDS: Morphine 2 MG/ML SYRINGE IV PRN ×2 (06:24→19:10)
[2021-05-17 06:50] LABS: Hematocrit 34 % (42-52); Hemoglobin 12.2 g/dL (14.0-18.0); Mean Corpuscular HGB Conc 36 g/dL (31-36); Mean Corpuscular Hemoglobin 31 pg (27-31); Mean Corpuscular Volume 85 fL (80-94); Mean Platelet Volume 7.3 fL (7.4-10.4); Platelet Count 323 10^3/uL (150-450); Red Blood Count 3.99 10^6 /uL (4.18-5.48); Red Cell Distribution Width 13 % (10-15); White Blood Count 6.6 10^3/uL (3.5-10.8)
[2021-05-17 08:29] LABS: Albumin 3.2 g/dL (3.2-5.2); Albumin/Globulin Ratio 0.9 (1-3); Calcium 7.8 mg/dL (8.6-10.3); Globulin 3.6 g/dL (2-4); Potassium 3.7 mmol/L (3.5-5.0); Total Bilirubin 0.5 mg/dL (0.2-1.0); Total Protein 6.8 g/dL (6.4-8.9); eGFR CKD-EPI 15.8 (>60)
[2021-05-17] MEDS: Dexmedetomidine 1,000 MCG in NS 0.9% 250 ml 240 ML IV SCH ×2 (08:29→16:34)
[2021-05-17] MEDS ORDERED: Enoxaparin 40 MG/0.4 ML SYR SUBCUT SCH ×2 (09:00→15:00)
[2021-05-17 09:34] LABS: Hepatitis B Surface Antigen Nonreactive (Nonreactive)
[2021-05-17 09:39] LABS: Hepatitis B Core IgM Nonreactive (Nonreactive)
[2021-05-17 09:52] LABS: Hepatitis B Surface Ab Not Immune (Immune)
[2021-05-17 10:19] LABS: Calcium 7.9 mg/dL (8.6-10.3); Magnesium 2.3 mg/dL (1.9-2.7); Phosphorus 4.3 mg/dL (2.5-5.0); Potassium 3.4 mmol/L (3.5-5.0); eGFR CKD-EPI 15.8 (>60)
[2021-05-17] MEDS ORDERED: Potassium Chloride LIQUID 20 MEQ/15 ML LIQUID PO ONE ×3 (10:51→20:00)
[2021-05-17] MEDS: Heparin 1,000 UNIT/ML 10 ml (10,000 UNITS) CATHLAB/DIALYSIS DIALYSIS ONE ×4 (10:55→14:15)
[2021-05-17] MEDS ORDERED: Bumetanide IV 10 MG in Premix IV 0 ML IV SCH (13:00)
[2021-05-17] MEDS ORDERED: Insulin GLARGINE 100 un/ml 10 ml VIAL SUBCUT SCH ×2 (14:00→21:00)
[2021-05-17 14:04] LABS: Calcium 8.8 mg/dL (8.6-10.3); Phosphorus 3.6 mg/dL (2.5-5.0); Potassium 3.6 mmol/L (3.5-5.0); eGFR CKD-EPI 27.2 (>60)
[2021-05-17] MEDS: Enoxaparin 30 MG/0.3 ML SYR SUBCUT SCH (15:15)
[2021-05-17] MEDS: cefTRIAXone 1 gm/50 mL NS BAG 1 GM/50 ML BAG IVPB SCH (15:28)
[2021-05-17 17:26] LABS: Calcium 7.9 mg/dL (8.6-10.3); Phosphorus 4.6 mg/dL (2.5-5.0); eGFR CKD-EPI 22.1 (>60)
[2021-05-17] MEDS: CMCS:Baricitinib 2 MG TAB (NF) PO SCH (20:51)
[2021-05-17] MEDS: Pantoprazole VIAL 40 MG VIAL IV SCH (20:52)
[2021-05-17 23:48] LABS: Magnesium 2.2 mg/dL (1.9-2.7); Potassium 4.3 mmol/L (3.5-5.0)
[2021-05-17 23:54] LABS: Phosphorus 3.8 mg/dL (2.5-5.0); eGFR CKD-EPI 20.4 (>60)
[2021-05-18] MEDS: Morphine 2 MG/ML SYRINGE IV PRN ×2 (00:34→04:05)
[2021-05-18] MEDS: Dexmedetomidine 1,000 MCG in NS 0.9% 250 ml 240 ML IV SCH (00:35)
[2021-05-18] MEDS: Chlorhexidine MOUTHWASH 0.12% 15 ML UDC TOPICAL SCH ×5 (00:36→16:16)
[2021-05-18] MEDS: methylPREDNISolone SOD 40 mg/ml 1 ml VIAL IV SCH (04:05)
[2021-05-18] MEDS ORDERED: Midazolam 5 mg/5 ml VIAL 1 mg/ml 5 ml VIAL (5 mg) IV SLOW PU ONE ×2 (04:48→08:05)
[2021-05-18] MEDS ORDERED: Midazolam 50 MG VIAL IV DRIP 50 ML IV SCH (05:00)
[2021-05-18 05:09] LABS: Calcium 7.8 mg/dL (8.6-10.3); Magnesium 2.2 mg/dL (1.9-2.7); Phosphorus 4.2 mg/dL (2.5-5.0); Potassium 3.9 mmol/L (3.5-5.0)
[2021-05-18 06:50] LABS: ABS Lymphocytes 0.5 10^3/ul (1.0-4.8); ABS Neutrophils 6.5 10^3/ul (1.5-7.7); Hematocrit 32 % (42-52); Hemoglobin 11.4 g/dL (14.0-18.0); Mean Corpuscular HGB Conc 36 g/dL (31-36); Mean Corpuscular Hemoglobin 31 pg (27-31); Mean Corpuscular Volume 85 fL (80-94); Mean Platelet Volume 7.5 fL (7.4-10.4); Platelet Count 246 10^3/uL (150-450); Red Blood Count 3.73 10^6 /uL (4.18-5.48); Red Cell Distribution Width 13 % (10-15); White Blood Count 7.9 10^3/uL (3.5-10.8)
[2021-05-18] MEDS ORDERED: Heparin 1,000 UNIT/ML 10 ml (10,000 UNITS) CATHLAB/DIALYSIS DIALYSIS ONE (08:00)
[2021-05-18] MEDS: Heparin 1,000 UNIT/ML 10 ml (10,000 UNITS) CATHLAB/DIALYSIS DIALYSIS PRN ×4 (08:05→12:27)
[2021-05-18 08:29] LABS: Calcium 7.7 mg/dL (8.6-10.3); Magnesium 2.3 mg/dL (1.9-2.7); Phosphorus 4.7 mg/dL (2.5-5.0); Potassium 4.3 mmol/L (3.5-5.0); eGFR CKD-EPI 20.7 (>60)
[2021-05-18 09:34] LABS: HDL Cholesterol 29.9 mg/dL
[2021-05-18] MEDS ORDERED: fentaNYL 100 mcg/2 ml 50 MCG/ML VIAL IV SLOW PU PRN (10:05)
[2021-05-18] MEDS: cefTRIAXone 1 gm/50 mL NS BAG 1 GM/50 ML BAG IVPB SCH (10:28)
[2021-05-18] MEDS ORDERED: fentaNYL 100 mcg/2 ml 50 MCG/ML VIAL IV SLOW PU ONE (12:17)
[2021-05-18] MEDS: Enoxaparin 30 MG/0.3 ML SYR SUBCUT SCH (16:15)
[2021-05-18] MEDS ORDERED: Dextrose 50% Syringe 50 ml 25 GM/50 ML SYRINGE IV PUSH PRN (17:52)
[2021-05-18] MEDS: Pantoprazole VIAL 40 MG VIAL IV SCH (19:42)
[2021-05-18] MEDS: Heparin 5000 UNITS/ML 1 mL VIAL SUBCUT SCH (19:42)
[2021-05-18] MEDS: CMCS:Baricitinib 2 MG TAB (NF) PO SCH (19:57)
[2021-05-18] MEDS ORDERED: Insulin GLARGINE 100 un/ml 10 ml VIAL SUBCUT SCH (21:00)
[2021-05-18 21:24] LABS: Glucose Confirmatory 463 mg/dL (70-100)
[2021-05-19 07:50] LABS: Hematocrit 36 % (42-52); Hemoglobin 12.6 g/dL (14.0-18.0); Mean Corpuscular HGB Conc 35 g/dL (31-36); Mean Corpuscular Hemoglobin 31 pg (27-31); Mean Corpuscular Volume 86 fL (80-94); Mean Platelet Volume 7.6 fL (7.4-10.4); Platelet Count 301 10^3/uL (150-450); Red Blood Count 4.13 10^6 /uL (4.18-5.48); Red Cell Distribution Width 13 % (10-15); White Blood Count 13.4 10^3/uL (3.5-10.8)
[2021-05-19 08:07] LABS: C Reactive Protein 69.5 mg/L (<8.01); Calcium 8.5 mg/dL (8.6-10.3); Magnesium 2.1 mg/dL (1.9-2.7); Phosphorus 4.6 mg/dL (2.5-5.0); Potassium 3.5 mmol/L (3.5-5.0); eGFR CKD-EPI 26.5 (>60)
[2021-05-19] MEDS: Heparin 5000 UNITS/ML 1 mL VIAL SUBCUT SCH ×2 (08:26→21:00)
[2021-05-19 08:31] LABS: Activated Partial Thrombo Time 26.1 seconds (26.0-38.0); INR 1.19 (0.86-1.15)
[2021-05-19 09:16] LABS: ABS Lymphocytes 1.2 10^3/ul (1.0-4.8); ABS Monocytes 1.8 10^3/ul (0-0.8); ABS Neutrophils 10.3 10^3/ul (1.5-7.7); Eosinophil % 0.1 %; Lymphocyte % 9.2 %
[2021-05-19] MEDS: cefTRIAXone 1 gm/50 mL NS BAG 1 GM/50 ML BAG IVPB SCH (10:19)
[2021-05-19] MEDS ORDERED: Potassium Chloride LIQUID 20 MEQ/15 ML LIQUID PO ONE ×2 (11:49→19:14)
[2021-05-19] MEDS ORDERED: Lidocaine PATCH 5% PATCH TRANSDERM ONE (13:34)
[2021-05-19] MEDS ORDERED: Lidocaine PATCH 5% PATCH ONE (13:46)
[2021-05-19 17:23] LABS: Calcium 9.1 mg/dL (8.6-10.3); Magnesium 2.5 mg/dL (1.9-2.7); Phosphorus 4.7 mg/dL (2.5-5.0); Potassium 3.6 mmol/L (3.5-5.0); eGFR CKD-EPI 24.3 (>60)
[2021-05-19] MEDS: CMCS:Baricitinib 2 MG TAB (NF) PO SCH (20:56)
[2021-05-19] MEDS: Insulin GLARGINE 100 un/ml 10 ml VIAL SUBCUT SCH (21:02)
[2021-05-19] MEDS: Lidocaine Patch REMOVE NOTE PATCH OFF SCH (21:56)
[2021-05-20 05:18] LABS: Hematocrit 35 % (42-52); Hemoglobin 12.1 g/dL (14.0-18.0); Mean Corpuscular HGB Conc 35 g/dL (31-36); Mean Corpuscular Hemoglobin 30 pg (27-31); Mean Corpuscular Volume 86 fL (80-94); Mean Platelet Volume 7.9 fL (7.4-10.4); Platelet Count 302 10^3/uL (150-450); Red Blood Count 4.06 10^6 /uL (4.18-5.48); Red Cell Distribution Width 13 % (10-15); White Blood Count 13.1 10^3/uL (3.5-10.8)
[2021-05-20 05:26] LABS: ABS Basophils 0.1 10^3/ul (0-0.2); ABS Lymphocytes 1.3 10^3/ul (1.0-4.8); ABS Monocytes 1.6 10^3/ul (0-0.8); ABS Neutrophils 10.1 10^3/ul (1.5-7.7); Eosinophil % 0.1 %; Lymphocyte % 10.1 %
[2021-05-20 05:46] LABS: Albumin 3.1 g/dL (3.2-5.2); Albumin/Globulin Ratio 0.8 (1-3); Calcium 8.7 mg/dL (8.6-10.3); Globulin 3.9 g/dL (2-4); Magnesium 2.5 mg/dL (1.9-2.7); Phosphorus 4.3 mg/dL (2.5-5.0); Potassium 3.4 mmol/L (3.5-5.0); Total Bilirubin 0.5 mg/dL (0.2-1.0); eGFR CKD-EPI 25.7 (>60)
[2021-05-20] MEDS ORDERED: Potassium Chlor 20 meq TAB.ER PO ONE ×2 (07:57→09:51)
[2021-05-20] MEDS: Heparin 5000 UNITS/ML 1 mL VIAL SUBCUT SCH ×2 (08:16→21:59)
[2021-05-20] MEDS: Potassium Chlor 20 meq TAB.ER PO SCH (09:06)
[2021-05-20] MEDS: cefTRIAXone 1 gm/50 mL NS BAG 1 GM/50 ML BAG IVPB SCH (10:54)
[2021-05-20 21:06] LABS: Glucose Confirmatory 457 mg/dL (70-100)
[2021-05-20] MEDS: CMCS:Baricitinib 2 MG TAB (NF) PO SCH (21:59)
[2021-05-20] MEDS: Lidocaine Patch REMOVE NOTE PATCH OFF SCH (22:09)
[2021-05-20] MEDS: Insulin GLARGINE 100 un/ml 10 ml VIAL SUBCUT SCH (22:33)
[2021-05-21 07:10] LABS: Hematocrit 32 % (42-52); Hemoglobin 11.2 g/dL (14.0-18.0); Mean Corpuscular HGB Conc 35 g/dL (31-36); Mean Corpuscular Hemoglobin 30 pg (27-31); Mean Corpuscular Volume 87 fL (80-94); Mean Platelet Volume 8.2 fL (7.4-10.4); Platelet Count 300 10^3/uL (150-450); Red Blood Count 3.69 10^6 /uL (4.18-5.48); Red Cell Distribution Width 13 % (10-15); White Blood Count 11.5 10^3/uL (3.5-10.8)
[2021-05-21 07:19] LABS: ABS Eosinophils 0.1 10^3/ul (0-0.6); ABS Lymphocytes 1.2 10^3/ul (1.0-4.8); ABS Monocytes 1.9 10^3/ul (0-0.8); ABS Neutrophils 8.3 10^3/ul (1.5-7.7); Eosinophil % 0.6 %; Lymphocyte % 10.8 %
[2021-05-21 07:31] LABS: Calcium 8.5 mg/dL (8.6-10.3); Magnesium 2.2 mg/dL (1.9-2.7); Phosphorus 4.3 mg/dL (2.5-5.0); Potassium 3.5 mmol/L (3.5-5.0); eGFR CKD-EPI 32.6 (>60)
[2021-05-21] MEDS ORDERED: Potassium Chlor 20 meq TAB.ER PO ONE (07:51)
[2021-05-21] MEDS: cefTRIAXone 1 gm/50 mL NS BAG 1 GM/50 ML BAG IVPB SCH (08:49)
[2021-05-21] MEDS: Potassium Chlor 20 meq TAB.ER PO SCH (08:52)
[2021-05-21] MEDS: Heparin 5000 UNITS/ML 1 mL VIAL SUBCUT SCH ×2 (08:53→21:45)
[2021-05-21] MEDS ORDERED: Lidocaine PATCH 5% PATCH TRANSDERM ONE (09:16)
[2021-05-21] MEDS ORDERED: Dextrose 50% Syringe 50 ml 25 GM/50 ML SYRINGE IV PUSH PRN (13:52)
[2021-05-21 17:13] LABS: Glucose Confirmatory 443 mg/dL (70-100)
[2021-05-21] MEDS ORDERED: Lidocaine Patch REMOVE NOTE PATCH OFF SCH (21:00)
[2021-05-21 21:10] LABS: Glucose Confirmatory 444 mg/dL (70-100)
[2021-05-21] MEDS: CMCS:Baricitinib 2 MG TAB (NF) PO SCH (21:44)
[2021-05-21] MEDS: Insulin GLARGINE 100 un/ml 10 ml VIAL SUBCUT SCH (21:45)
[2021-05-22 06:11] LABS: Hematocrit 36 % (42-52); Hemoglobin 12.4 g/dL (14.0-18.0); Mean Corpuscular HGB Conc 35 g/dL (31-36); Mean Corpuscular Hemoglobin 30 pg (27-31); Mean Corpuscular Volume 87 fL (80-94); Mean Platelet Volume 7.6 fL (7.4-10.4); Platelet Count 344 10^3/uL (150-450); Red Blood Count 4.12 10^6 /uL (4.18-5.48); Red Cell Distribution Width 13 % (10-15); White Blood Count 10.5 10^3/uL (3.5-10.8)
[2021-05-22 06:38] LABS: Calcium 9.3 mg/dL (8.6-10.3); Potassium 3.8 mmol/L (3.5-5.0); eGFR CKD-EPI 40.2 (>60)
[2021-05-22] MEDS: Potassium Chlor 20 meq TAB.ER PO SCH (08:52)
[2021-05-22] MEDS: Heparin 5000 UNITS/ML 1 mL VIAL SUBCUT SCH (08:53)
[2021-05-22 17:45] VITALS: BP 125/65
== END 2021-05-22 20:00 | disposition home or self-care (01) | DRG 208 ==
LOC: ED 13:54 → SUATTDRO 16:23 → ICU 16:23 → MED 05-20 14:55
PROVIDERS: ADMIT Internal Medicine; ATTEND Hospitalist